=== PATIENT | female | born 1955 | race Caucasian/White ===

== ENCOUNTER 2017-03-29 14:53 | Observation (INO) ==
[2017-03-29 15:16] LABS: Basophils % 0.1 %; Eosinophils % 0.1 %; Hematocrit 45.6 % (35.3-44.9); Hemoglobin 14.3 g/dL (11.5-15.4); Immature Granulocytes % 0.6 % (0-4); Lymphocytes % 7.5 %; Mean Corpuscular HGB Conc 31.4 g/dL (31.6-35.5); Mean Corpuscular Hemoglobin 25.4 pg (28.0-33.3); Mean Corpuscular Volume 80.9 fL (83.0-100.0); Mean Platelet Volume 10.2 fL (9.4-12.4); Monocytes # 0.7 K/mcL (0.0-1.3); Monocytes % 5.5 %; Neutrophils # 10.9 K/mcL (1.6-8.9); Platelet Count 181 K/mcL (140-400); Red Blood Count 5.64 M/mcL (3.82-4.97); Red Cell Distribution Width 15.2 % (11.5-14.5); Segmented Neutrophils % 86.2 %
[2017-03-29 15:33] LABS: Alanine Aminotransferase 28 Units/L (0-55); Albumin 3.6 g/dL (3.5-5.0); Albumin/Globulin Ratio 0.9 (1.1-2.2); Alkaline Phosphatase 124 Units/L (38-126); Amylase 98 Units/L (25-125); Aspartate Amino Transferase 25 Units/L (5-34); BUN/Creatinine Ratio 18 (6-26); Bilirubin,Direct 0.3 mg/dL (0.0-0.5); Bilirubin,Indirect 0.5 mg/dL (0.0-1.2); Bilirubin,Total 0.8 mg/dL (0.2-1.2); Blood Urea Nitrogen 13 mg/dL (7-20); Carbon Dioxide 27 mEq/L (19-29); Chloride 100 mEq/L (98-109); Globulin 4.1 g/dL (2.4-3.5); Glucose 121 mg/dL (70-99); Lipase 28 Units/L (8-78); Osmolality,Calculated 283 (280-300); Potassium 3.6 mEq/L (3.5-4.5); Sodium 136 mEq/L (136-145); Total Protein 7.7 g/dL (6.0-8.3); eGFR For African Americans > 60 (> 60); eGFR For Non-African Americans > 60 (> 60)
[2017-03-29] MEDS ORDERED: Aspirin 81 MG TAB.CHEW PO ONE (15:35)
--- NOTE | 2017-03-29 15:35 | Emergency Department Note ---
Disposition Clinical Impression: Accelerated hypertension Chest pain Qualifiers: Chest pain type: unspecified Qualified Code(s): R07.9 - Chest pain, unspecified HTN (hypertension) Qualifiers: Hypertension type: unspecified secondary hypertension Qualified Code(s): I15.9 - Secondary hypertension, unspecified Disposition: Home, Self-Care Condition: Fair Time of Disposition: 17:14 Chest Pain HPI - General Chief Complaint: ED Chest Pain Stated Complaint: chest pain Time Seen by Provider: 03/29/17 14:59 Source: patient, EMS Limitations: no limitations Vital Signs Reviewed: Yes Nursing Notes Reviewed: Yes - History of Present Illness HPI Narrative: 62-year-old female with MRDD, presents with chest pain. 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 She denies fever chills, productive cough, history of DVTs , history of CAD. She does have a history of hypertension and does take amlodipine for hypertension. Ordered reports 10 out of 10 chest pain, intermittent chest radiating across her left and right chest. Pt complaint: chest pain Onset (ago): hour(s) Duration: intermittent Pain Location: substernal Severity: severe Severity scale (1-10): 10 Quality: aching, heaviness Pain Radiation: none Improves with: nothing Worsens with: nothing Associated symptoms: Reports: nausea. Denies: vomiting, diaphoresis, dyspnea - Related Data Home Medications Medication Instructions Recorded Confirmed Aspirin Enteric Coated [Aspirin EC] 81 mg PO DAILY 08/27/15 01/09/16 Citalopram [CeleXA] 20 mg PO DAILY 08/27/15 01/09/16 Ergocalciferol (VITAMIN D2) 50,000 unit PO QWEEK PRN 08/27/15 01/09/16 [Vitamin D2 (50,000 UNIT)] Famotidine [Pepcid] 40 mg PO DAILY 08/27/15 01/09/16 Furosemide [Lasix] 20 mg PO DAILY 08/27/15 01/09/16 Ketoconazole Shampoo [Nizoral 1 appl TP AD 08/27/15 01/09/16 Shampoo] Meclizine [Antivert] 25 mg PO TID PRN 08/27/15 01/09/16 Albuterol Sulfate [Albuterol 2 puff IH Q6HR 01/09/16 01/09/16 Inhaler] Lisinopril [Zestril] 20 mg PO DAILY 01/09/16 01/09/16 amLODIPine [Norvasc] 2.5 mg PO DAILY 01/09/16 01/09/16 Previous Rx's Medication Instructions Recorded Cefdinir [Omnicef] 300 mg PO BID #8 capsule 01/10/16 Hydrocodone/Acetaminophen [[place] 1 tab PO Q6H PRN #8 tab 01/18/16 5-325 Tablet] Ondansetron ODT [Zofran ODT] 4 mg SL Q8HR PRN #15 tab.rapdis 01/18/16 Omeprazole 40 mg PO DAILY 14 Days 04/10/16 Naproxen [Naprosyn] 250 mg PO BID #6 tablet 07/26/16 Allergies Allergy/AdvReac Type Severity Reaction Status Date / Time acetaminophen Allergy See Verified 01/09/16 12:33 [From Tylenol-Codeine #3] Comments codeine Allergy See Verified 01/09/16 12:33 [From Tylenol-Codeine #3] Comments Sulfa (Sulfonamide Allergy See Verified 01/09/16 12:33 Antibiotics) Comments All systems ED: reviewed and negative except as stated. Constitutional: Denies: fever, chills ENT ED: Denies: ear pain, throat pain Cardiovascular: Reports: as per HPI, chest pain. Denies: palpitations Respiratory: Denies: cough, dyspnea Gastrointestinal: Denies: abdominal pain Genitourinary: Denies: urgency, dysuria Musculoskeletal: Denies: back pain Integumentary: Denies: rash Neurological: Denies: headache Chest Pain PMH - Past Medical History Medical history: Reports: asthma, hyperlipidemia, hypertension, other Surgical history: Reports: no surgical history Psychiatric history: Reports: other QUOTER history: Reports: no QUOTER history - Social History Smoking Status: Never smoker Alcohol use: Reports: none Drug use: Reports: none Physical Exam Constitutional: temp 99.9, no acute distress. HEENT: NCAT, sclera anicteric, PERRLA bilaterally, normal external ears bilaterally, nasal septum nondeviated, average dentition, MMM Neck: normal inspection, neck is supple, trachea midline Resp: Pectus carinatum CTA bilaterally, no resp distress CV: RRR, no m/g/r GI: normal inspection, Soft, NTND, BS present Back: normal inspection, no tenderness to palpation Neuro: A&O3, exam limited due to baseline mental status with probable retardation, no gross motor or sensory deficits bilaterally MSK: normal inspection, bilateral UE and LE with normal ROM Skin: No rashes, skin warm, dry, intact - General Limitations: other (MRDD) General appearance: alert Course Course Narrative: 62-year-old female with MRDD, short stature, large chest, she does admit shortness of breath, and chest pain also hypertension. With systolic blood pressure 190, this is already improved to 176, we will give her medication as indicated try aspirin nitroglycerin at this time, troponin EKG basic labs reassess - Reevaluation(s) Reevaluation #1: chest pain improved with nitroglycerin, admit to medicine service paged Dr. Jules Time: 17:08 Reevaluation #2: ADmitted to Dr Jules in stable condition for chest pain rule out. Vital Signs Temperature 99.9 F H 03/29/17 14:54 Pulse Rate 88 03/29/17 14:54 Respiratory Rate 16 03/29/17 14:54 Blood Pressure 176/98 03/29/17 14:54 O2 Sat by Pulse Oximetry 92 03/29/17 14:54 Temperature 99.9 F H 03/29/17 14:54 Pulse Rate 76 03/29/17 17:03 Respiratory Rate 18 03/29/17 17:03 Blood Pressure 160/90 03/29/17 17:03 O2 Sat by Pulse Oximetry 95 03/29/17 17:03 Oxygen Delivery Oxygen Delivery Room Air Chest Pain - MDM Narrative Medical decision making narrative: 62-year-old female with chest pain at rest, hypertension, admitted for chest pain rule out, hypertensive management. Some blood pressure improvement with nitroglycerin and improvement of chest pain. - Medical Records Medical records reviewed: Yes I reviewed the patient's medical records. - Lab Data Lab results reviewed: Yes I reviewed the patient's lab results. Result diagrams: 03/29/17 15:10 03/29/17 15:10 Lab Results 03/29/17 03/29/17 03/29/17 Range/Units 15:10 15:10 15:10 WBC 12.6 H (4.3-11.1) K/mcL RBC 5.64 H (3.82-4.97) M/mcL Hgb 14.3 (11.5-15.4) g/dL Hct 45.6 H (35.3-44.9) % MCV 80.9 L (83.0-100.0) fL MCH 25.4 L (28.0-33.3) pg MCHC 31.4 L (31.6-35.5) g/dL RDW 15.2 H (11.5-14.5) % Plt Count 181 (140-400) K/mcL MPV 10.2 (9.4-12.4) fL Immature Gran % 0.6 (0-4) % Seg Neutrophils % 86.2 % Lymphocytes % 7.5 % Monocytes % 5.5 % Eosinophils % 0.1 % Basophils % 0.1 % Neutrophils # 10.9 H (1.6-8.9) K/mcL Lymphocytes # 1.0 (0.6-4.6) K/mcL Monocytes # 0.7 (0.0-1.3) K/mcL Eosinophils # 0.0 (0.0-0.6) K/mcL Basophils # 0.0 (0.0-0.2) K/mcL Sodium 136 (136-145) mEq/L Potassium 3.6 (3.5-4.5) mEq/L Chloride 100 (98-109) mEq/L Carbon Dioxide 27 (19-29) mEq/L BUN 13 (7-20) mg/dL Creatinine 0.74 (0.57-1.11) mg/dL Est GFR ( Amer) > 60 (> 60) Est GFR (Non-Af Amer) > 60 (> 60) BUN/Creatinine Ratio 18 (6-26) Glucose 121 H (70-99) mg/dL Calculated Osmolality 283 (280-300) Lactic Acid (0.5-2.2) mmol/L Calcium 9.0 (8.6-10.8) mg/dL Total Bilirubin 0.8 (0.2-1.2) mg/dL Direct Bilirubin 0.3 (0.0-0.5) mg/dL Indirect Bilirubin 0.5 (0.0-1.2) mg/dL AST 25 (5-34) Units/L ALT 28 (0-55) Units/L Alkaline Phosphatase 124 (38-126) Units/L Troponin I 0.01 (0-0.03) ng/mL Serum Total Protein 7.7 (6.0-8.3) g/dL Albumin 3.6 (3.5-5.0) g/dL Globulin 4.1 H (2.4-3.5) g/dL Albumin/Globulin Ratio 0.9 L (1.1-2.2) Amylase 98 (25-125) Units/L Lipase 28 (8-78) Units/L // Range/Units 16:07 WBC (4.3-11.1) K/mcL RBC (3.82-4.97) M/mcL Hgb (11.5-15.4) g/dL Hct (35.3-44.9) % MCV (83.0-100.0) fL MCH (28.0-33.3) pg MCHC (31.6-35.5) g/dL RDW (11.5-14.5) % Plt Count (140-400) K/mcL MPV (9.4-12.4) fL Immature Gran % (0-4) % Seg Neutrophils % % Lymphocytes % % Monocytes % % Eosinophils % % Basophils % % Neutrophils # (1.6-8.9) K/mcL Lymphocytes # (0.6-4.6) K/mcL Monocytes # (0.0-1.3) K/mcL Eosinophils # (0.0-0.6) K/mcL Basophils # (0.0-0.2) K/mcL Sodium (136-145) mEq/L Potassium (3.5-4.5) mEq/L Chloride (98-109) mEq/L Carbon Dioxide (19-29) mEq/L BUN (7-20) mg/dL Creatinine (0.57-1.11) mg/dL Est GFR ( Amer) (> 60) Est GFR (Non-Af Amer) (> 60) BUN/Creatinine Ratio (6-26) Glucose (70-99) mg/dL Calculated Osmolality (280-300) Lactic Acid 1.8 (0.5-2.2) mmol/L Calcium (8.6-10.8) mg/dL Total Bilirubin (0.2-1.2) mg/dL Direct Bilirubin (0.0-0.5) mg/dL Indirect Bilirubin (0.0-1.2) mg/dL AST (5-34) Units/L ALT (0-55) Units/L Alkaline Phosphatase (38-126) Units/L Troponin I (0-0.03) ng/mL Serum Total Protein (6.0-8.3) g/dL Albumin (3.5-5.0) g/dL Globulin (2.4-3.5) g/dL Albumin/Globulin Ratio (1.1-2.2) Amylase (25-125) Units/L Lipase (8-78) Units/L - Radiology Data Radiology results reviewed: Yes I reviewed the patient's radiology results. Chest X-Ray 03/29/17 15:00 IMPRESSION: Stable chest examination. No focal consolidation. D/ / Reema Alcazar MD / Reema Alcazar MD Interpreting Provider: Reema Alcazar MD Chest CTA 03/29/17 15:57 IMPRESSION: 1. No evidence of pulmonary embolic disease. 2. No acute pulmonary findings. 3. Mild enlargement of the main pulmonary artery which can be seen with pulmonary hypertension. D/ / Bin Norris MD / Bin Norris MD Interpreting Provider: Bin Norris MD - EKG Data EKG attestation: Yes I reviewed and interpreted this EKG. EKG shows normal: sinus rhythm Rate: normal Rhythm: NSR (84 bpm [place] 138 QRS [address] segment elevations or depressions, nonspecific possible left bundle branch block,) Interpretation: no acute changes - Core Measures AMI Core Measures Followed: Yes Heart Score - Score History: Slightly Suspicious EKG: Non Specific repolarisation Disturbance Age: 45-65 Risk Factors: Equal/Greater than 3 risk factor or history of atherosclerotic disease Troponin: Less than normal limit HEART Score Total: 4 Attestation Statement - Attestation Attestation: I examined this patient and my medical decision-making was reviewed with the AX SURVEY WORKER/PA/Advanced Practice Nurse/Resident Physician. I agree with the documented findings, disposition and treatment plan as described except to the extent set forth below. Patient emergency department with a chief complaint chest pain. 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 They apparently center for high blood pressure. Patient then stated to medics that she been having chest pain all day. Patient is development delayed and has a difficult time describing it. On examination she is awake and alert in no acute distress. Blood pressure is 170 systolic. Plan. Cardiac workup. No ischemic changes on EKG.
[2017-03-29] MEDS ORDERED: 0.9 % Sodium Chloride 1,000 ML IVC ONE (15:56)
[2017-03-29] MEDS: Nitroglycerin 0.4 MG TAB.SUBL SL ONE ×2 (17:00→17:07)
[2017-03-29 17:29] LABS: Bilirubin,Urine Negative (Negative); Blood,Urine Trace (Negative); Clarity,Urine Clear (Clear); Color,Urine Yellow (Yellow); Glucose,Urine (UA) Normal (Normal); Ketones,Urine Negative (Negative); Leukocyte Esterase,Urine Negative (Negative); Nitrite,Urine Negative (Negative); Protein,Urine Negative (Neg-Trace); Specific Gravity,Urine > 1.030 (1.010-1.025); Urobilinogen,Urine Normal (Normal)
[2017-03-29 17:31] LABS: Bacteria,Urine None Seen per hpf (None-Few); Hyaline Casts,Urine None Seen per lpf (None-Few); Squamous Epithelial Cell,Urine Moderate per lpf (None-Few); WBC,Urine 0-3 per hpf (0-3)
[2017-03-29] MEDS ORDERED: Naloxone 0.4 MG/ML INJ IVP PRN (18:01)
[2017-03-29] MEDS ORDERED: Acetaminophen 325 MG TABLET PO PRN (18:01)
[2017-03-29] MEDS ORDERED: traZODone 50 MG TABLET PO PRN (18:04)
[2017-03-29] MEDS ORDERED: amLODIPine 5 MG TABLET PO ONE (18:06)
[2017-03-29] MEDS ORDERED: Nitroglycerin 0.4 MG TAB.SUBL SL PRN (18:08)
--- NOTE | 2017-03-29 18:10 | Internal Med History&Physical ---
<Siena Bullard - Last Filed: 03/29/17 18:27> Date of Encounter: 03/29/17 Time of Encounter: 18:10 Assessment and Plan (1) Chest pain Current visit: Yes Status: Acute 1 patient's been experiencing midsternal chest pain radiating to right arm which occurred at rest it was related to nitroglycerin. Patient has risk factors of hypertension pressure and obesity. First cardiac troponin was 0.01 and continue to cycle troponins 2 continuous cardiac monitoring 3 we will obtain cardiac echo 4 we will check lipid profile in a.m. 5 continue aspirin 6 nitroglycerin as needed for chest pain 7 oxygen as needed 8 patient will be nothing by mouth after midnight for cardiac stress in a.m. Qualifiers: Chest pain type: unspecified Qualified Code(s): R07.9 - Chest pain, unspecified (2) Hypertensive urgency Current visit: Yes Status: Acute 1 patient has elevated blood pressure 190s systolic she is having chest pain. Given 2 nitroglycerin which did bring down her blood pressure to 170s. She is on amlodipine as well as lisinopril. We will give 5 mg of amlodipine tonight and increase dose to 10 mg in the a.m. We will continue lisinopril (3) Leukocytosis Current visit: Yes Status: Acute 1 patient has WBC 12.6, suspect this is reactive and patient appears dry. We will give her gentle IV fluids overnight and recheck in the a.m. Qualifiers: Leukocytosis type: unspecified Qualified Code(s): D72.829 - Elevated white blood cell count, unspecified (4) DVT prophylaxis Current visit: Yes Status: Acute [facility] Internal Medicine - H&P: HPI Chief complaint: CP htn Admitted From: Emergency Dept Plans for Post Hospital Care: Home History of present illness: is a 62 year old female with past medical history of MRDD hypertension depression. Information has been obtained from medical records as well as caregiver who is at bedside due to patient's cognition. Patient was performing some crafts today when she began to experience midsternal chest pain radiating to right arm. Blood pressure was checked it was 190. Patient reports associated symptoms of nausea and shortness of breath. She was brought to the ER for evaluation. At the ER was noted the patient's systolic blood pressure was 190 she was given aspirin and 2 nitroglycerin which did relieve patient's chest pain and blood pressure improved to systolic of 176. Lab work was obtained troponin was 0.01 some mild leukocytosis chest x-ray was unremarkable. EKG with no ST-T wave abnormalities. We will admit patient for further workup evaluation. Presently patient denies any chest pain she has not. To be any respiratory distress. Lung sounds are clear heart sounds S1 and S2 with no rubs clicks gallops murmurs noted. Patient does have tenderness upon palpation across her chest and on her right arm. Abdomen is soft and nontender no pedal edema noted. Presently patient's systolic is 180 she is sinus rhythm on the monitor. I reviewed this case with Dr. Jules who agrees with plan Past Med Surg Social Fam HX - Past Medical History Medical history: asthma, hyperlipidemia, hypertension, other Psychiatric history: other - Past Surgical History Surgical History: no surgical history - Social History Smoking Status: Never smoker Smokeless Tobacco Status: No Alcohol use: none Drug use: none - Family History Mother Living Status: Internal Medicine - H&P: Meds Cholecalciferol (D-3) [Vitamin D] 1,000 unit PO DAILY 03/29/17 [History] Citalopram [CeleXA] 20 mg PO DAILY 03/29/17 [History] Lisinopril [Zestril] 10 mg PO DAILY 03/29/17 [History] Oxybutynin Chloride [Ditropan Xl] 10 mg PO DAILY 03/29/17 [History] Saliva Stimulant [Biotene Moisturizing Rinse] 10 ml PO 5XD PRN 03/29/17 [History ] Triamcinolone Acet 0.1% CRM [Kenalog] 1 appl TP 2XW 03/29/17 [History] amLODIPine [Norvasc] 5 mg PO DAILY 03/29/17 [History] traZODone [TraZODone] 50 mg PO HS PRN 03/29/17 [History] Allergies Sulfa (Sulfonamide Antibiotics) Allergy (Verified 03/29/17 17:27) Caregiver uncertain of reaction, states "she is allergic" codeine [From Tylenol-Codeine #3] Adverse Reaction (Verified 03/29/17 17:22) See Comments nausea and vomiting ROS unobtainable: due to mental status All Systems PM: A 10-system review of systems was performed and is negative for pertinent findings except as documented above in the HPI. - Constitutional Vitals: Temp Pulse Resp BP Pulse Ox 98.9 F 76 18 160/90 95 03/29/17 17:25 03/29/17 17:03 03/29/17 17:25 03/29/17 17:25 03/29/17 17:03 General appearance: Present: A&O X 2, morbidly obese, pleasant - Head Head exam: Present: atraumatic, normocephalic - Eye Eye exam: Present: PERRL, conjuntiva pink, sclera anicteric Pupils: Present: PERRL - Neck Neck exam general surgery: Present: supple, trachea midline. Absent: lymphadenopathy - Respiratory Respiratory exam: Present: CTAB. Absent: accessory muscle use, rales, rhonchi, wheezes - Cardiovascular Cardiovascular exam: Present: RRR, +S1, +S2. Absent: diastolic murmur, gallop, rubs, systolic murmur - GI/Abdominal GI/Abdominal exam: Present: normal bowel sounds, soft, no peritoneal signs. Absent: distended, tenderness - Extremities Exam Extremities exam: Present: warm, radial pulses palpable and symetrical. Absent : calf tenderness, cyanotic, pedal edema - Neurological Exam Neurological exam: Present: CN II-XII intact, oriented X3, no focal deficits. Absent: pronater drift, facial droop, speech deficit - Skin Skin exam: Present: dry, intact Internal Med - H&P Results - Labs CBC & Chem 7: 03/29/17 15:10 03/29/17 15:10 Labs: Urine 03/29/17 Range/Units 17:18 Urine Color Yellow (Yellow) Urine Clarity Clear (Clear) Urine pH 7.0 (5.0-8.0) pH Units Ur Specific [place] > 1.030 H (1.010-1.025) Urine Protein Negative (Neg-Trace) mg/dL Urine Glucose (UA) Normal (Normal) mg/dL - EKG Data EKG shows normal: sinus rhythm Rate: normal - Diagnostic Studies Other Images Additional comments: Chest X-Ray 03/29/17 15:00 IMPRESSION: Stable chest examination. No focal consolidation. D/ / Reema Alcazar MD / Reema Alcazar MD Interpreting Provider: Reema Alcazar MD Chest CTA 03/29/17 15:57 IMPRESSION: 1. No evidence of pulmonary embolic disease. 2. No acute pulmonary findings. 3. Mild enlargement of the main pulmonary artery which can be seen with pulmonary hypertension. D/ / 03/29/2017 16:49:45 Bin Norris MD [facility] Interpreting Provider: Bin Norris MD <Jorge AEdward T - Last Filed: 03/29/17 18:29> Date of Encounter: 03/29/17 Internal Medicine - H&P: HPI History of present illness: is a 62 year old female All Systems PM: A 10-system review of systems was performed and is negative for pertinent findings except as documented above in the HPI. - Constitutional Vitals: Temp Pulse Resp BP Pulse Ox 99.4 F 78 18 171/92 95 03/29/17 18:24 03/29/17 18:24 03/29/17 18:24 03/29/17 18:24 03/29/17 18:24 Internal Med - H&P Results - Labs CBC & Chem 7: 03/29/17 15:10 03/29/17 15:10 Labs: Urine 03/29/17 Range/Units 17:18 Urine Color Yellow (Yellow) Urine Clarity Clear (Clear) Urine pH 7.0 (5.0-8.0) pH Units Ur Specific [place] > 1.030 H (1.010-1.025) Urine Protein Negative (Neg-Trace) mg/dL Urine Glucose (UA) Normal (Normal) mg/dL - Attending Attestation 62 F, MRDD, HTN, Depression presented with chest pain, details of chest pain difficult to obtain due to mental status. Initial work up negative, patient is clinically dehydrated, BP uncontrolled. Agree with trending troponins, ECHO and Nuclear stress imaging, increase Norvasc , continue home meds, add ASA and Lipitor. Rest of details as in DIRECTOR INTEGRATED Bullard documentation which I agree with.
[2017-03-29] MEDS ORDERED: Ringers Solution, Lactated 1,000 ML IVC SCH (18:15)
[2017-03-30 03:21] LABS: Basophils % 0.1 %; Eosinophils # 0.1 K/mcL (0.0-0.6); Eosinophils % 1.1 %; Hematocrit 43.7 % (35.3-44.9); Hemoglobin 13.7 g/dL (11.5-15.4); Immature Granulocytes % 0.4 % (0-4); Lymphocytes # 1.9 K/mcL (0.6-4.6); Lymphocytes % 21.9 %; Mean Corpuscular HGB Conc 31.4 g/dL (31.6-35.5); Mean Corpuscular Hemoglobin 25.5 pg (28.0-33.3); Mean Corpuscular Volume 81.2 fL (83.0-100.0); Mean Platelet Volume 9.6 fL (9.4-12.4); Monocytes # 0.7 K/mcL (0.0-1.3); Monocytes % 7.6 %; Neutrophils # 5.9 K/mcL (1.6-8.9); Platelet Count 162 K/mcL (140-400); Red Blood Count 5.38 M/mcL (3.82-4.97); Red Cell Distribution Width 15.3 % (11.5-14.5); Segmented Neutrophils % 68.9 %
[2017-03-30 03:37] LABS: BUN/Creatinine Ratio 14 (6-26); Blood Urea Nitrogen 10 mg/dL (7-20); Calcium 8.5 mg/dL (8.6-10.8); Carbon Dioxide 29 mEq/L (19-29); Chloride 104 mEq/L (98-109); Chol/HDL Ratio 2.3 (0-4.9); Cholesterol 178 mg/dL (< 200); Glucose 105 mg/dL (70-99); HDL Cholesterol 77 mg/dL (40-59); LDL Cholesterol,Calculated 86 mg/dL (0-99); Osmolality,Calculated 289 (280-300); Potassium 3.4 mEq/L (3.5-4.5); Sodium 140 mEq/L (136-145); Triglycerides 77 mg/dL (< 150); eGFR For African Americans > 60 (> 60); eGFR For Non-African Americans > 60 (> 60)
[2017-03-30] MEDS ORDERED: Regadenoson 0.4 MG/5 ML SYRINGE IVP ONE (06:15)
[2017-03-30] MEDS ORDERED: Perflutren Lipid Microsphere 1.3 ML in 0.9 % Sodium Chloride 8.7 ML IVP ONE (07:50)
[2017-03-30] MEDS: amLODIPine 5 MG TABLET PO SCH (10:30)
[2017-03-30] MEDS: Aspirin Enteric Coated 81 MG Tablet PO SCH (10:30)
[2017-03-30] MEDS: Cholecalciferol (D-3) 1,000 UNIT TABLET PO SCH (10:31)
--- NOTE | 2017-03-30 11:40 | Internal Med Progress Note ---
Date of Encounter: 03/30/17 Time of Encounter: 10:00 - Assessment and plan (1) Chest pain Current Visit: No Status: Resolved Assessment and plan: Patient currently denies chest pain or shortness of breath. Chest x-ray negative. CTA negative and revealing possible pulmonary hypertension. Echocardiogram is pending. 2 part stress test in progress. ITS Impressions Chest X-Ray 03/29/17 15:00 IMPRESSION: Stable chest examination. No focal consolidation. D/ / Reema Alcazar MD / Reema Alcazar MD Interpreting Provider: Reema Alcazar MD Chest CTA 03/29/17 15:57 IMPRESSION: 1. No evidence of pulmonary embolic disease. 2. No acute pulmonary findings. 3. Mild enlargement of the main pulmonary artery which can be seen with pulmonary hypertension. D/ / 03/29/2017 16:49:45 Bin Norris MD / [facility] Interpreting Provider: Bin Norris MD (2) Cognitive developmental delay Current Visit: Yes Status: Chronic Assessment and plan: Patient has MRDD. She is able to answer questions and it appears as if she is her own guardian. She does live in a half-way. (3) Hypokalemia Current Visit: Yes Status: Acute Assessment and plan: mild, will trend (4) HTN (hypertension) Current Visit: Yes Status: Chronic Assessment and plan: Uncontrolled. At home, patient is on lisinopril 10 mg daily, amlodipine 5 mg daily. Amlodipine has been increased to 10 and she remains hypertensive, will increase her lisinopril and monitor. (5) Accelerated hypertension Current Visit: Yes Status: Acute (6) DVT prophylaxis Current Visit: Yes Status: Acute Assessment and plan: Subcutaneous Lovenox ordered (7) Leukocytosis Current Visit: Yes Status: Resolved Assessment and plan: Likely stress related, no signs of active infection. Urinalysis normal, no signs of pneumonia or other sources of infection. Qualifiers: Leukocytosis type: unspecified Qualified Code(s): D72.829 - Elevated white blood cell count, unspecified (8) Morbid obesity with BMI of 50.0-59.9, adult Current Visit: Yes Status: Chronic - Subjective Interval history: Patient seen and examined. On examination, patient resting supine in bed. She is awake, alert and oriented 3. She denies pain or shortness of breath. She states that she has eaten all of her breakfast. She denies concerns at this time. - Constitutional Vitals: Temp Pulse Resp BP Pulse Ox 98 F 62 15 175/90 94 03/30/17 10:50 03/30/17 10:50 03/30/17 10:50 03/30/17 10:50 03/30/17 10:50 General appearance: Present: A&O X 2, morbidly obese, pleasant, answers questions appropriately - Head Head exam: Present: atraumatic, normocephalic - Eye Eye exam: Present: PERRL, conjuntiva pink, sclera anicteric Pupils: Present: PERRL - Neck Neck exam general surgery: Present: supple, trachea midline. Absent: lymphadenopathy - Respiratory Respiratory exam: Present: CTAB. Absent: accessory muscle use, rales, respiratory distress, rhonchi, wheezes - Cardiovascular Cardiovascular exam: Present: RRR, +S1, +S2. Absent: diastolic murmur, gallop, rubs, systolic murmur - GI/Abdominal GI/Abdominal exam: Present: normal bowel sounds, soft, no peritoneal signs. Absent: distended, tenderness - Extremities Exam Extremities exam: Present: warm, radial pulses palpable and symetrical. Absent : calf tenderness, cyanotic, pedal edema - Neurological Exam Neurological exam: Present: alert, CN II-XII intact, no focal deficits, strengths equal and symetr throughout. Absent: pronater drift, facial droop, speech deficit - Skin Skin exam: Present: dry, intact, normal color, warm Internal Medicine: Result - Labs CBC & Chem 7: 03/30/17 03:12 03/30/17 03:12 Labs: Short CBC 03/30/17 Range/Units 03:12 WBC 8.6 (4.3-11.1) K/mcL Hgb 13.7 (11.5-15.4) g/dL Hct 43.7 (35.3-44.9) % Plt Count 162 (140-400) K/mcL Neutrophils # 5.9 (1.6-8.9) K/mcL BMP 03/30/17 03:12 Sodium 140 Potassium 3.4 L Chloride 104 Carbon Dioxide 29 BUN 10 Creatinine 0.73 Glucose 105 H Calcium 8.5 L Cardiac Enzymes 03/29/17 03/30/17 Range/Units 20:47 03:12 Troponin I 0.01 0.02 (0-0.03) ng/mL Urine 03/29/17 Range/Units 17:18 Urine Color Yellow (Yellow) Urine Clarity Clear (Clear) Urine pH 7.0 (5.0-8.0) pH Units Ur Specific [place] > 1.030 H (1.010-1.025) Urine Protein Negative (Neg-Trace) mg/dL Urine Glucose (UA) Normal (Normal) mg/dL Consult Discharge Plan - Plan Referrals: Nicki Loco [Primary Care Provider] -
--- NOTE | 2017-03-30 13:01 | Electrocardiograph Report ---
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
[2017-03-30] MEDS ORDERED: *HR* Metoprolol 5 MG/5 ML VIAL IVP ONE (14:48)
[2017-03-31 06:37] LABS: BUN/Creatinine Ratio 20 (6-26); Blood Urea Nitrogen 17 mg/dL (7-20); Calcium 8.9 mg/dL (8.6-10.8); Carbon Dioxide 27 mEq/L (19-29); Chloride 102 mEq/L (98-109); Glucose 94 mg/dL (70-99); Osmolality,Calculated 289 (280-300); Potassium 3.7 mEq/L (3.5-4.5); Sodium 139 mEq/L (136-145); eGFR For African Americans > 60 (> 60); eGFR For Non-African Americans > 60 (> 60)
[2017-03-31] MEDS ORDERED: Regadenoson 0.4 MG/5 ML SYRINGE IVP ONE (06:40)
[2017-03-31] MEDS ORDERED: *HR* Enoxaparin 40 MG/0.4 ML SYRINGE SQ SCH (07:00)
[2017-03-31] MEDS ORDERED: Lisinopril 20 MG TABLET PO SCH (09:00)
[2017-03-31] MEDS: Cholecalciferol (D-3) 1,000 UNIT TABLET PO SCH (09:28)
[2017-03-31] MEDS: Aspirin Enteric Coated 81 MG Tablet PO SCH (09:28)
[2017-03-31] MEDS: amLODIPine 5 MG TABLET PO SCH (09:29)
--- NOTE | 2017-03-31 10:17 | Nuclear Medicine Stress Report ---
Regadenoson Nuclear 2 Name: Lilibeth Little Date of Study: 03/30/2017 Date: 1955 Ht: 48.0 in Medical Record#: [id number] Age: 62 Wt: 179.0 lb Gender: Female Order #: [id number] Location: [facility] Room: [facility] Supervising Provider: Luis E Bates DO, FACC, FASE, Reading Physician: Luis E Bates DO, FACC, FASE, FASNC Ordering Physician: Ivory Chicas CNP Primary Care Physician: Luis F Lazar MD Stress Technologist: Jorge Glass RRT, CCT Comb Tender: Florencio Schuster Indications: Chest Pain Impression: Pharmacologic stress ECG is negative for ischemia at level of heart rate achieved. Gated EF = 62%. Small sized, mild intensity, fixed apex defect c/w artifact. Perfusion imaging was negative for ischemia or infarct. History: Hypertension Diabetes Hypercholesteremia Stress Test Summary: Stress Test Type: Pharmacologic Regadenoson 0.4mg/5ml given IV Baseline Information: Initial Heart Rate: 62 Blood Pressure: 160/76 Stress Information: Stress Time: 4 min 00 sec Test Terminated Due to (primary): Completed Protocol Maximum Blood Pressure: 146/74 Maximum Heart Rate: 88 Percent Maximum Heart Rate Achieved: 57 Double Product: [id number] METS Reached: 1 Symptoms: Shortness of breath Nuclear Summary: SPECT myocardial perfusion imaging using Tc99m Sestamibi given intravenously was performed at rest and following cardiac stress testing. The resting images were obtained following initial dose of 32.0 mCi. Following stress an additional dose of 35.1 mCi was given at peak exercise or 30 seconds post regadenoson infusion. Medication Given: Time Medication Dose Units Route Findings: Stress Note * Resting ECG demonstrated normal sinus rhythm. * No baseline arrhythmias were noted. * Pharmacologic stress ECG is negative for ischemia at level of heart rate achieved. * No arrhythmias were noted during stress. * Patient had no chest pain during stress. * Normal hemodynamic responses to pharmacologic stress. Study Quality * Study quality is average. Gated EF % * Gated EF = 62%. Left Ventricle * The left ventricle is not dilated. LVEDV = 89 mL. * Normal wall motion. Apical Perfusion Rest * The apex segment shows a mild reduction in perfusion. Apical Perfusion Stress * The apex segment shows a mild reduction in perfusion. TID * No evidence of transient ischemic dilatation. TID ratio = 1.29. Lung Uptake * There is no evidence of increase lung uptake. Updated by Luis E Bates DO, LAKE, SHAKEEL, KATHIE on 03/31/2017 10:11:33 AM electronically signed on 03/31/2017 10:12:16 AM with status of Final
[2017-03-31 12:04] VITALS: BP 146/65
--- NOTE | 2017-03-31 12:39 | Discharge Summary ---
Date of Encounter: 03/31/17 Time of Encounter: 12:00 - Discharge Diagnosis (1) Chest pain Priority: Primary Status: Resolved Comments: Patient denied chest pain or shortness of breath throughout this admission. ACS ruled out Qualifiers: Chest pain type: unspecified Qualified Code(s): R07.9 - Chest pain, unspecified (2) Cognitive developmental delay Priority: Secondary Status: Chronic (3) Hypokalemia Priority: Primary Status: Resolved (4) HTN (hypertension) Priority: Secondary Status: Chronic Comments: Uncontrolled. At home, patient is on lisinopril 10 mg daily, amlodipine 5 mg daily. Amlodipine has been increased to 10, lisinopril has been increased, and metoprolol has been added to her regimen. Normotensive at time of discharge. Recommend daily blood pressure checks at home. Qualifiers: Hypertension type: unspecified secondary hypertension Qualified Code(s): I15.9 - Secondary hypertension, unspecified; I15 - Secondary hypertension (5) Accelerated hypertension Priority: Primary Status: Resolved (6) DVT prophylaxis Priority: Primary Status: Acute Comments: Subcutaneous Lovenox while admitted. (7) Leukocytosis Priority: Primary Status: Resolved Comments: Mild, resolved. Likely stress related. No signs of acute infection. Qualifiers: Leukocytosis type: unspecified Qualified Code(s): D72.829 - Elevated white blood cell count, unspecified (8) Morbid obesity with BMI of 50.0-59.9, adult Priority: Secondary Status: Chronic - Discharge Medications Prescriptions: amLODIPine [Norvasc] 10 mg PO DAILY #60 tablet Lisinopril [Zestril] 20 mg PO DAILY #30 tablet Metoprolol [Lopressor] 12.5 mg PO BID #30 tablet Home Medications: Cholecalciferol (D-3) [Vitamin D] 1,000 unit PO DAILY 03/29/17 [History] Citalopram [CeleXA] 20 mg PO DAILY 03/29/17 [History] Oxybutynin Chloride [Ditropan Xl] 10 mg PO DAILY 03/29/17 [History] Saliva Stimulant [Biotene Moisturizing Rinse] 10 ml PO 5XD PRN 03/29/17 [History ] Triamcinolone Acet 0.1% CRM [Kenalog] 1 appl TP 2XW 03/29/17 [History] traZODone [TraZODone] 50 mg PO HS PRN 03/29/17 [History] Lisinopril [Zestril] 20 mg PO DAILY #30 tablet 03/31/17 [Rx] Metoprolol [Lopressor] 12.5 mg PO BID #30 tablet 03/31/17 [Rx] amLODIPine [Norvasc] 10 mg PO DAILY #60 tablet 03/31/17 [Rx] Allergies/Adverse Reactions: Allergies Sulfa (Sulfonamide Antibiotics) Allergy (Verified 03/29/17 17:27) Caregiver uncertain of reaction, states "she is allergic" codeine [From Tylenol-Codeine #3] Adverse Reaction (Verified 03/29/17 17:22) See Comments nausea and vomiting Procedures/tests Complete & Pending: Procedures Performed prior 72 hours Category Date Time Status NM damion perf SPECT multi [NM] Routine Exams 03/29/17 18:07 Taken ECG 12 lead ECG [ECG] AM 0600 Y 03/30/17 06:00 Ordered EV echocardiogram w enhance Routine Y 03/30/17 18:06 Completed SP pharm nuclear stress Routine Y 03/31/17 08:00 Completed Date of admission: 03/29/17 17:13 Primary care physician: Nicki Loco Consults: 03/29/17 18:44 Consult to Job Change Crew Member [CONS] Routine Reason for SW Consult: Pt from [facility]. Discharging clinician: Ivory Chicas Anticipated date of discharge: 03/31/17 (back to assisted) - Patient Status Disposition: Home, Self-Care Condition: Fair Functional capacity at discharge: independent ambulation Overall status at discharge: patient is back to baseline - Discharge Instructions Instructions: Chronic Hypertension (DC) Follow Up With: Nicki Loco [Primary Care Provider] - Additional Instructions: Follow-up appointments: Follow-up with primary care provider within one to 2 weeks, check blood pressure daily and keep a log If there is not an appointment listed below, please call your physician and schedule a follow-up appointment. If you have congestive heart failure and your symptoms return, make an appointment with your physician. Medication List: Carry an up to date list of medications you are taking at all time. We have given you an updated medication list including any new medications that you have been prescribed. Please provide that list to your primary provider Symptoms: If your condition changes or you experience any of the following symptoms, notify your physician immediately: Unusual or worsening pain, fever, persistent nausea and vomiting, bleeding, increase in swelling (especially in your legs), sudden weight gain, extreme dizziness, chest pain, increased drainage or redness from a wound or incision. Go to the emergency department if you experience a problem with breathing. Weights: If you have a history of swelling or shortness of breath, weigh yourself daily and notify your physician if you have a weight gain of two or more pounds in one day or 5 or more pounds in a week. If you experience any of the warning signs for stroke: Sudden numbness or weakness of the face, arm or leg; especially on one side of the body, sudden confusion, trouble speaking or understanding, sudden trouble seeing in one or both eyes, sudden trouble walking, dizziness, loss of balance or coordination, sudden sever headache with no cause; Call 911 or go to the emergency room. Stroke is a medical emergency. Some risk factors for stroke: Age, cigarette smoking, diabetes, excessive alcohol consumption, family history , high blood pressure, overweight, physical inactivity, prior stroke, heart attack, diagnosis of carotid artery stenosis or other artery disease. If you smoke, STOP: Smoking or tobacco use significantly increases your risk of heart and lung disease. Your chance of disease greatly increases if you continue to smoke. For more information, call the [employer] tobacco quit line for smoking cessation QUIT-NOW ( ) - Diet and Activity Activity: increase activity as tolerated Diet: low fat, low cholesterol, low salt diet Hospital course: is a 62 year old female with past medical history of MRDD, hypertension, depression, hyperlipidemia, morbid obesity with BMI of 54. Patient presented to the emergency department chief complaint of chest pain. History obtained per caregiver who was present upon her presentation to the emergency department. Patient lives in a assisted and she was performing crafts when she began to experience mid sternally located chest pain that radiated to her right arm. Blood pressure was checked at that time and she was hypertensive. Patient also endorsed nausea and shortness of breath during this episode. Initial blood pressure in the emergency department 170s over 100. Workup in the emergency department otherwise was unremarkable. Chest x-ray negative for acute processes. Chest CTA negative for acute processes. Patient was admitted to the hospitalist service for further evaluation and management. Regarding her hypertension, her home dosages of lisinopril and amlodipine were both increased but she remained hypertensive since she was started on metoprolol. She was normotensive at time of discharge. Patient denied chest pain or shortness of breath throughout this admission. Her echocardiogram was unremarkable with ejection fraction of 60% and mild diastolic dysfunction. Patient was euvolemic on examination and tolerated a regular diet during this admission. She had a 2 day nuclear stress test that was negative for ischemia or infarct. Acute coronary syndrome ruled out. Chest pain likely secondary to accelerated hypertension. Recommend daily blood pressure checks at home and following up outpatient. She was discharged back to her assisted in stable condition with close outpatient follow-up recommended. ITS Impressions Chest X-Ray 03/29/17 15:00 IMPRESSION: Stable chest examination. No focal consolidation. D/ / Reema Alcazar MD / Reema Alcazar MD Interpreting Provider: Reema Alcazar MD Chest CTA 03/29/17 15:57 IMPRESSION: 1. No evidence of pulmonary embolic disease. 2. No acute pulmonary findings. 3. Mild enlargement of the main pulmonary artery which can be seen with pulmonary hypertension. D/ / 03/29/2017 16:49:45 Bin Norris MD / kamila Interpreting Provider: Bin Norris MD Echo with imaging enhancement agent impressions: LVEF 60%. Normal left ventricular size and systolic function. Definity was given. There is evidence of mild diastolic dysfunction of the left ventricle. Normal right ventricular size and function. Mild aortic regurgitation. No pulmonary hypertension. Possible interatrial septal shunt by color flow imaging. Regadenosen nuclear 2 day impressions: Pharmacologic stress ECG is negative for ischemia at level for rate achieved. Gated EF equals 62%. Small size, mild intensity, fixed apex defect consistent with artifact. Perfusion imaging was negative for ischemia or infarct. - Time Spent with Patient Total time spent providing and/or coordinating discharge services: - Constitutional Vitals: Temp Pulse Resp BP Pulse Ox 98.9 F 59 17 146/65 96 07/01/17 12:03 03/31/17 12:03 03/31/17 12:03 03/31/17 12:03 03/31/17 12:03 General appearance: Present: A&O X 2, morbidly obese, pleasant, no acute distress, answers questions appropriately - Head Head exam: Present: atraumatic, normocephalic - Eye Eye exam: Present: PERRL, conjuntiva pink, sclera anicteric Pupils: Present: PERRL - Neck Neck exam general surgery: Present: supple, trachea midline. Absent: lymphadenopathy - Respiratory Respiratory exam: Present: CTAB. Absent: accessory muscle use, rales, respiratory distress, rhonchi, wheezes - Cardiovascular Cardiovascular exam: Present: RRR, +S1, +S2. Absent: diastolic murmur, gallop, rubs, systolic murmur - GI/Abdominal GI/Abdominal exam: Present: normal bowel sounds, soft, no peritoneal signs. Absent: distended, tenderness - Extremities Exam Extremities exam: Present: warm, radial pulses palpable and symetrical. Absent : calf tenderness, cyanotic, pedal edema - Neurological Exam Neurological exam: Present: alert, CN II-XII intact, normal gait, no focal deficits, strengths equal and symetr throughout. Absent: pronater drift, facial droop, speech deficit - Skin Skin exam: Present: dry, intact, normal color, warm
== END 2017-03-31 15:21 | disposition home or self-care (01) ==
LOC: 3BNU 14:53 → EMEROO 14:53 → 3BNU 17:55
PROVIDERS: ADMIT Internal Medicine; ATTEND Nurse Practitioner Family

== ENCOUNTER 2018-10-07 17:46 | Observation (INO) ==
[2018-10-07 21:42] LABS: Basophils % 0.2 %; Eosinophils # 0.2 K/mcL (0.0-0.6); Eosinophils % 2.1 %; Hematocrit 42.6 % (35.3-44.9); Hemoglobin 13.4 g/dL (11.5-15.4); Immature Granulocytes % 0.5 % (0-4); Lymphocytes # 1.8 K/mcL (0.6-4.6); Mean Corpuscular HGB Conc 31.5 g/dL (31.6-35.5); Mean Corpuscular Hemoglobin 25.9 pg (28.0-33.3); Mean Corpuscular Volume 82.2 fL (83.0-100.0); Monocytes # 0.5 K/mcL (0.0-1.3); Monocytes % 6.3 %; Neutrophils # 5.7 K/mcL (1.6-8.9); Platelet Count 198 K/mcL (140-400); Red Blood Count 5.18 M/mcL (3.82-4.97); Red Cell Distribution Width 15.7 % (11.5-14.5); Segmented Neutrophils % 68.9 %
[2018-10-07 21:44] LABS: Bilirubin,Urine Negative (Negative); Blood,Urine Negative (Negative); Clarity,Urine Clear (Clear); Color,Urine Yellow (Yellow); Glucose,Urine (UA) Normal (Normal); Ketones,Urine Negative (Negative); Leukocyte Esterase,Urine Negative (Negative); Nitrite,Urine Negative (Negative); PH,Urine 6.5 pH Units (5.0-8.0); Protein,Urine Negative (Neg-Trace); Specific Gravity,Urine 1.006 (1.010-1.025); Urobilinogen,Urine Normal (Normal)
[2018-10-07 21:56] LABS: Prothrombin Time 11.7 Seconds (9.4-12.1)
[2018-10-07 21:58] LABS: Activated Partial Thrombo Time 30.9 Seconds (26.0-36.0)
[2018-10-07 22:03] LABS: BUN/Creatinine Ratio 30 (6-26); Blood Urea Nitrogen 23 mg/dL (8-23); Calcium 9.2 mg/dL (8.6-10.3); Carbon Dioxide 29 mEq/L (23-29); Chloride 98 mEq/L (98-107); Glucose 90 mg/dL (70-105); Osmolality,Calculated 289 (280-300); Potassium 3.4 mEq/L (3.5-5.1); Sodium 138 mEq/L (136-145); eGFR For Non-African Americans > 60 (> 60)
[2018-10-07 22:04] LABS: Troponin I < 0.03 ng/mL (< 0.04)
[2018-10-07] MEDS ORDERED: Aspirin 81 MG TAB.CHEW PO ONE (23:05)
--- NOTE | 2018-10-07 23:09 | Emergency Department Note ---
Disposition Clinical Impression: Chest pain, rule out acute myocardial infarction Disposition: Admitted As Inpatient Condition: Fair Referrals: NONE,PCP [Primary Care Provider] - Chest Pain HPI - General Chief Complaint: ED Chest Pain Stated Complaint: HTN Time Seen by Provider: 10/07/18 20:33 Source: patient Limitations: no limitations Vital Signs Reviewed: Yes Nursing Notes Reviewed: Yes - History of Present Illness HPI Narrative: 63-year-old female presents emergency Department with concerns of acute onset chest pain which is associated with nausea, diaphoresis, weakness, fatigue. Patient states symptoms started while she was at the group activity. It improved with rest, return with further exertion. Patient denies history of cardiac disease in the past she has a history of hypertension and hy perlipidemia. Pt complaint: chest pain Severity scale (1-10): 8 - Related Data Home Medications Medication Instructions Recorded Confirmed Cholecalciferol (D-3) [Vitamin D] 1,000 unit PO DAILY 03/29/17 08/08/18 Citalopram [CeleXA] 20 mg PO DAILY 03/29/17 08/08/18 Oxybutynin Chloride [Ditropan Xl] 10 mg PO DAILY 03/29/17 08/08/18 Saliva Stimulant [Biotene 10 ml PO 5XD PRN 03/29/17 08/08/18 Moisturizing Rinse] Triamcinolone Acet 0.1% CRM 1 appl TP 2XW 03/29/17 08/08/18 [Kenalog] traZODone [TraZODone] 50 mg PO HS PRN 03/29/17 08/08/18 Previous Rx's Medication Instructions Recorded Lisinopril [Zestril] 20 mg PO DAILY #30 tablet 03/31/17 Metoprolol [Lopressor] 12.5 mg PO BID #30 tablet 03/31/17 amLODIPine [Norvasc] 10 mg PO DAILY #60 tablet 03/31/17 Albuterol Sulfate [Albuterol 2 puff IH QID #1 inhaler 01/02/18 Inhaler] Clotrimazole [Athlete's Foot] 1 cm TP BID PRN #1 tube 08/08/18 Allergies Allergy/AdvReac Type Severity Reaction Status Date / Time Sulfa (Sulfonamide Allergy Caregiver Verified 08/08/18 17:40 Antibiotics) uncertain of reaction, states "she is allergic" codeine AdvReac See Verified 08/08/18 17:40 [From Tylenol-Codeine #3] Comments All systems ED: reviewed and negative except as stated. Review of Systems: As Per HPI Chest Pain PMH - Past Medical History Medical history: Reports: CHF, hypertension Surgical history: Reports: no surgical history Psychiatric history: Reports: anxiety, depression, other FINANCIAL COORDINATOR history: Reports: no FINANCIAL COORDINATOR history - Social History Smoking Status: Never smoker Alcohol use: Reports: none Drug use: Reports: none Physical Exam General: Alert and in no acute distress Skin: Warm, dry, intact Head: Normocephalic and atraumatic Neck: Supple, trachea midline and no tenderness Cardiovascular: RRR, no murmur, normal perfusion Respiratory: CTAB, no wheezing, cough, or respiratory distress Musculoskeletal: Normal strength, no tenderness, swelling or deformity GI: Soft, nontender, nondistended. Bowel sounds present Neuro: A&O to person, place, time and situation. No focal deficits noted on exam Psychiatric: cooperative and appropriate mood and affect. - General Limitations: no limitations General appearance: alert, in no apparent distress Course Vital Signs Temperature 98.4 F 10/07/18 18:16 Pulse Rate 63 10/07/18 18:16 Respiratory Rate 15 10/07/18 18:16 Blood Pressure 139/69 10/07/18 18:16 O2 Sat by Pulse Oximetry 96 10/07/18 18:16 Temperature 98.4 F 10/07/18 20:40 Pulse Rate 52 10/07/18 22:59 Respiratory Rate 19 10/07/18 22:59 Blood Pressure 138/90 10/07/18 22:59 O2 Sat by Pulse Oximetry 98 10/07/18 22:59 Oxygen Delivery Oxygen Delivery Nasal Cannula Chest Pain - Medical Records Medical records reviewed: Yes I reviewed the patient's medical records. - Lab Data Lab results reviewed: Yes I reviewed the patient's lab results. Result diagrams: 10/07/18 21:23 10/07/18 21:23 Lab Results 10/07/18 10/07/18 10/07/18 Range/Units 21:23 21:23 21:23 WBC 8.2 (4.3-11.1) K/mcL RBC 5.18 H (3.82-4.97) M/mcL Hgb 13.4 (11.5-15.4) g/dL Hct 42.6 (35.3-44.9) % MCV 82.2 L (83.0-100.0) fL MCH 25.9 L (28.0-33.3) pg MCHC 31.5 L (31.6-35.5) g/dL RDW 15.7 H (11.5-14.5) % Plt Count 198 (140-400) K/mcL MPV 10.0 (9.4-12.4) fL Immature Gran % 0.5 (0-4) % Seg Neutrophils % 68.9 % Lymphocytes % 22.0 % Monocytes % 6.3 % Eosinophils % 2.1 % Basophils % 0.2 % Neutrophils # 5.7 (1.6-8.9) K/mcL Lymphocytes # 1.8 (0.6-4.6) K/mcL Monocytes # 0.5 (0.0-1.3) K/mcL Eosinophils # 0.2 (0.0-0.6) K/mcL Basophils # 0.0 (0.0-0.2) K/mcL PT 11.7 (9.4-12.1) Seconds INR 1.0 APTT 30.9 (26.0-36.0) Seconds Sodium (136-145) mEq/L Potassium (3.5-5.1) mEq/L Chloride (98-107) mEq/L Carbon Dioxide (23-29) mEq/L BUN (8-23) mg/dL Creatinine (0.60-1.20) mg/dL Est GFR ( Amer) (> 60) Est GFR (Non-Af Amer) (> 60) BUN/Creatinine Ratio (6-26) Glucose (70-105) mg/dL Calculated Osmolality (280-300) Calcium (8.6-10.3) mg/dL Troponin I (< 0.04) ng/mL Lipase 32 (11-82) Units/L Urine Color (Yellow) Urine Clarity (Clear) Urine pH (5.0-8.0) pH Units Ur Specific [place] (1.010-1.025) Urine Protein (Neg-Trace) mg/dL Urine Glucose (UA) (Normal) mg/dL Urine Ketones (Negative) mg/dL Urine Blood (Negative) Urine Nitrite (Negative) Urine Bilirubin (Negative) Urine Urobilinogen (Normal) mg/dL Ur Leukocyte Esterase (Negative) Ur Culture Indicated? (NO) 10/07/18 10/07/18 Range/Units 21:23 21:30 WBC (4.3-11.1) K/mcL RBC (3.82-4.97) M/mcL Hgb (11.5-15.4) g/dL Hct (35.3-44.9) % MCV (83.0-100.0) fL MCH (28.0-33.3) pg MCHC (31.6-35.5) g/dL RDW (11.5-14.5) % Plt Count (140-400) K/mcL MPV (9.4-12.4) fL Immature Gran % (0-4) % Seg Neutrophils % % Lymphocytes % % Monocytes % % Eosinophils % % Basophils % % Neutrophils # (1.6-8.9) K/mcL Lymphocytes # (0.6-4.6) K/mcL Monocytes # (0.0-1.3) K/mcL Eosinophils # (0.0-0.6) K/mcL Basophils # (0.0-0.2) K/mcL PT (9.4-12.1) Seconds INR APTT (26.0-36.0) Seconds Sodium 138 (136-145) mEq/L Potassium 3.4 L (3.5-5.1) mEq/L Chloride 98 (98-107) mEq/L Carbon Dioxide 29 (23-29) mEq/L BUN 23 (8-23) mg/dL Creatinine 0.76 (0.60-1.20) mg/dL Est GFR ( Amer) > 60 (> 60) Est GFR (Non-Af Amer) > 60 (> 60) BUN/Creatinine Ratio 30 H (6-26) Glucose 90 (70-105) mg/dL Calculated Osmolality 289 (280-300) Calcium 9.2 (8.6-10.3) mg/dL Troponin I < 0.03 (< 0.04) ng/mL Lipase (11-82) Units/L Urine Color Yellow (Yellow) Urine Clarity Clear (Clear) Urine pH 6.5 (5.0-8.0) pH Units Ur Specific [place] 1.006 L (1.010-1.025) Urine Protein Negative (Neg-Trace) mg/dL Urine Glucose (UA) Normal (Normal) mg/dL Urine Ketones Negative (Negative) mg/dL Urine Blood Negative (Negative) Urine Nitrite Negative (Negative) Urine Bilirubin Negative (Negative) Urine Urobilinogen Normal (Normal) mg/dL Ur Leukocyte Esterase Negative (Negative) Ur Culture Indicated? NO (NO) - Radiology Data Radiology results reviewed: Yes I reviewed the patient's radiology results. - EKG Data EKG attestation: Yes I reviewed and interpreted this EKG. EKG results narrative: Normal sinus rhythm with a rate of [address] elevation or other depression. No STEMI. QTc 445, QRS 101 Heart Score - Score History: Moderately Suspicious EKG: Normal Age: 45-65 Risk Factors: Equal/Greater than 3 risk factor or history of atherosclerotic dis ease Troponin: Less than normal limit HEART Score Total: 4
--- NOTE | 2018-10-08 00:09 | Internal Med History&Physical ---
<Bin Mckeon - Last Filed: 10/08/18 02:04> Date of Encounter: 10/08/18 Time of Encounter: 00:08 Internal Medicine - H&P: HPI Chief complaint: Chest pain Ad[facility]: [facility] History of present illness: is a 63 year old female detention resident with a past medical history of intellectual disability, hypertension, hyperlipidemia, diastolic CHF, and morbid obesity presented complaining of exertional chest pain 2 associated with nausea, vomiting, diaphoresis, weakness, and fatigue. Chest pain was located in the substernal region and non-radiating. Chest pain only lasted for a few seconds and resolved spontaneously. Patient's last nuclear stress test on 03/30/17 was negative for ischemia. She denies family history of cardiac disease. 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 Psychiatric history: anxiety, depression, other - Past Surgical History Surgical History: no surgical history - Social History Smoking Status: Never smoker Smokeless Tobacco Status: No Alcohol use: none Drug use: none - Family History Mother Living Status: Hx Family Cancer: Yes (Colon cancer) Hx Family Endocrine Disorder: Yes (Diabetes) Father Hx Family Endocrine Disorder: Yes (Diabetes) Internal Medicine - H&P: Meds Cholecalciferol (D-3) [Vitamin D] 1,000 unit PO DAILY 03/29/17 [History] Citalopram [CeleXA] 20 mg PO DAILY 03/29/17 [History] Oxybutynin Chloride [Ditropan Xl] 5 mg PO DAILY 03/29/17 [History] Saliva Stimulant [Biotene Moisturizing Rinse] 10 ml PO 5XD PRN 03/29/17 [History] Triamcinolone Acet 0.1% CRM [Kenalog] 1 appl TP 2XW 03/29/17 [History] traZODone [TraZODone] 100 mg PO HS PRN 03/29/17 [History] Lisinopril [Zestril] 20 mg PO DAILY #30 tablet 03/31/17 [Rx] amLODIPine [Norvasc] 10 mg PO DAILY #60 tablet 03/31/17 [Rx] Albuterol Sulfate [Albuterol Inhaler] 2 puff IH QID #1 inhaler 01/02/18 [Rx] Clotrimazole [Athlete's Foot] 1 cm TP BID PRN #1 tube 08/08/18 [Rx] Acetaminophen [Tylenol] 500 mg PO PRN PRN 10/08/18 [History] Acitretin [Soriatane] 25 mg PO DAILY 10/08/18 [History] Furosemide [Lasix] 40 mg PO DAILY 10/08/18 [History] Metoprolol [Lopressor] 50 mg PO DAILY 10/08/18 [History] Allergy/AdvReac Type Severity Reaction Status Date / Time Sulfa (Sulfonamide Allergy Caregiver Verified 08/08/18 17:40 Antibiotics) uncertain of reaction, states "she is allergic" codeine AdvReac See Verified 08/08/18 17:40 [From Tylenol-Codeine #3] Comments All Systems PM: A 10-system review of systems was performed and is negative for pertinent findings except as documented above in the HPI. - Constitutional Constitutional: fatigue, weakness, no chills, no fever(s) - EENT Eyes: no blurry vision, no diplopia Nose, mouth and throat: no sinus pain, no sore throat - Cardiovascular Cardiovascular ROS IM: chest pain, diaphoresis, no dyspnea, no dyspnea on exertion, no palpitations - Respiratory Respiratory: no cough, no dyspnea, no wheezing, no pain with cough - Gastrointestinal Gastrointestinal: nausea, vomiting, no abdominal pain, no diarrhea - Genitourinary Genitourinary: no urinary frequency, no urinary urgency - Musculoskeletal Musculoskeletal ROS IM: no back pain, no numbness, no tingling - Integumentary Integumentary IM: no erythema, no rash, no skin ulcer - Neurological Neurological ROS: weakness, no headache(s), no numbness, no tingling - Psychiatric Psychiatric: no anxiety, no depression - Endocrine Endocrine IM: fatigue, no polyphagia, no polyuria - Hematologic/Lymphatic Hematologic/Lymphatic: no easy bleeding, no easy bruising - Constitutional Vitals: Temp Pulse Resp BP Pulse Ox 98.4 F 57 19 155/82 99 10/07/18 20:40 10/07/18 23:33 10/07/18 23:33 10/07/18 23:33 10/07/18 23:33 General appearance: Present: cooperative, A&O X 3, pleasant, obese, answers questions appropriately Exam: Awake, pleasant, responds appropriately with yes or no answers - Head Head exam: Present: atraumatic, normocephalic - Eye Eye exam: Present: EOMI, PERRL, conjuntiva pink, sclera anicteric Pupils: Present: PERRL - ENT ENT exam: Present: mucous membranes moist, normal oropharynx - Neck Neck exam general surgery: Present: supple, trachea midline. Absent: lymphadenopathy - Respiratory Respiratory exam: Present: CTAB. Absent: accessory muscle use, rales, rhonchi, wheezes - Cardiovascular Cardiovascular exam: Present: RRR, +S1, +S2. Absent: diastolic murmur, gallop, rubs, systolic murmur - GI/Abdominal GI/Abdominal exam: Present: normal bowel sounds, soft, no peritoneal signs. Absent: distended, tenderness - Extremities Exam Extremities exam: Present: warm, radial pulses palpable and symmetrical. Absent: calf tenderness, cyanotic, pedal edema - Neurological Exam Neurological exam: Present: CN II-XII intact, oriented X3, no focal deficits. Absent: facial droop, speech deficit Additional comments: Cognitive delay - Psychiatric Psychiatric exam: Present: normal affect, normal mood - Skin Skin exam: Present: dry, intact Internal Med - H&P Results - Labs CBC & Chem 7: 10/07/18 21:23 10/07/18 21:23 Labs: Short CBC 10/07/18 Range/Units 21:23 WBC 8.2 (4.3-11.1) K/mcL Hgb 13.4 (11.5-15.4) g/dL Hct 42.6 (35.3-44.9) % Plt Count 198 (140-400) K/mcL Neutrophils # 5.7 (1.6-8.9) K/mcL BMP 10/07/18 21:23 Sodium 138 Potassium 3.4 L Chloride 98 Carbon Dioxide 29 BUN 23 Creatinine 0.76 Glucose 90 Calcium 9.2 Cardiac Enzymes 10/07/18 Range/Units 21:23 Troponin I < 0.03 (< 0.04) ng/mL Urine 10/07/18 Range/Units 21:30 Urine Color Yellow (Yellow) Urine Clarity Clear (Clear) Urine pH 6.5 (5.0-8.0) pH Units Ur Specific [place] 1.006 L (1.010-1.025) Urine Protein Negative (Neg-Trace) mg/dL Urine Glucose (UA) Normal (Normal) mg/dL - Pulse Oximetry Interpretation Digit-Finger O2 Sat by Pulse Oximetry: 94 (On 2 L supplemental oxygen) - EKG Data -: EKG Interpreted by Myself EKG shows normal: sinus rhythm (Heart rate 60, QTc 445, QRS 101, no ST elevation or depression) - Impressions ITS Impressions Chest X-Ray 10/07/18 21:15 IMPRESSION: Cardiomegaly with mild pulmonary vascular congestion D/ / Jones Daniel MD / Jones Daniel MD Interpreting Provider: Jones Daniel MD - Assessment and plan (1) Chest pain, rule out acute myocardial infarction Current Visit: Yes Status: Acute Assessment and plan: 63-year-old female with a history of hypertension obesity, and remote diabetes presented with exertional chest pain x2. Resolved spontaneously. EKG unremarkable Last nuclear stress test negative for ischemia 03/30/17 Initial troponin negative, trend serial troponins Continue aspirin Continue Nitroglycerin prn chest pain Repeat nuclear stress test in AM Continue close monitoring (2) HTN (hypertension) Current Visit: No Status: Chronic Assessment and plan: Continue amlodipine Hold beta ying and DARRYN inhibitor Continue monitoring Qualifiers: Hypertension type: unspecified secondary hypertension Qualified Code(s): I15.9 - Secondary hypertension, unspecified; I15 - Secondary hypertension (3) Hyperlipidemia Current Visit: No Status: Chronic Assessment and plan: Lipid panel pending Start statin Qualifiers: Hyperlipidemia type: unspecified Qualified Code(s): E78.5 - Hyperlipidemia, unspecified (4) Diastolic CHF, chronic Current Visit: No Status: Chronic Assessment and plan: Echo 03/30/17 revealed LVEF 60%, mild LV diastolic dysfunction, mild aortic regurg (5) Hypokalemia Current Visit: Yes Status: Acute Assessment and plan: Potassium 3.4 Supplement potassium Magnesium level pending Continue monitoring (6) Cognitive developmental delay Current Visit: No Status: Chronic Assessment and plan: Continue home meds (7) Morbid obesity with BMI of 40.0-44.9, adult Current Visit: No Status: Chronic Assessment and plan: Lifestyle modification (8) DVT prophylaxis Current Visit: Yes Status: Acute Assessment and plan: EPCD's - Time Spent With Patient Total time spent is greater than 50% in coordination of care (as documented) at patient's floor/unit and/or counseling patient: <Yuliya Murphy - Last Filed: 10/08/18 06:40> Date of Encounter: 10/08/18 Internal Medicine - H&P: HPI History of present illness: is a 63 year old female All Systems PM: A 10-system review of systems was performed and is negative for pertinent findings except as documented above in the HPI. - Constitutional Vitals: Temp Pulse Resp BP Pulse Ox 98.7 F 54 19 126/63 94 10/08/18 04:38 10/08/18 04:38 10/08/18 04:38 10/08/18 04:38 10/08/18 04:38 Internal Med - H&P Results - Labs CBC & Chem 7: 10/08/18 03:52 10/08/18 03:52 Labs: Short CBC 10/07/18 10/08/18 Range/Units 21:23 03:52 WBC 8.2 6.7 (4.3-11.1) K/mcL Hgb 13.4 12.8 (11.5-15.4) g/dL Hct 42.6 41.3 (35.3-44.9) % Plt Count 198 180 (140-400) K/mcL Neutrophils # 5.7 4.3 (1.6-8.9) K/mcL BMP 10/07/18 10/08/18 21:23 03:52 Sodium 138 139 Potassium 3.4 L 3.8 Chloride 98 101 Carbon Dioxide 29 30 H BUN 23 20 Creatinine 0.76 0.70 Glucose 90 100 Calcium 9.2 8.7 Cardiac Enzymes 10/07/18 10/08/18 Range/Units 21:23 03:52 Troponin I < 0.03 < 0.03 (< 0.04) ng/mL Urine 10/07/18 Range/Units 21:30 Urine Color Yellow (Yellow) Urine Clarity Clear (Clear) Urine pH 6.5 (5.0-8.0) pH Units Ur Specific [place] 1.006 L (1.010-1.025) Urine Protein Negative (Neg-Trace) mg/dL Urine Glucose (UA) Normal (Normal) mg/dL - Impressions ITS Impressions Chest X-Ray 10/07/18 21:15 IMPRESSION: Cardiomegaly with mild pulmonary vascular congestion D/ / Jones Daniel MD / Jones Daniel MD Interpreting Provider: Joens Daniel MD - Time Spent With Patient Total time spent is greater than 50% in coordination of care (as documented) at patient's floor/unit and/or counseling patient: - Attending Attestation I performed a history of physical examination of the patient and discussed her management with the resident. I reviewed the resident's note and agree with the assessment and plan of care.
[2018-10-08] MEDS ORDERED: Ondansetron 4 MG/2 ML VIAL IVP PRN (01:00)
[2018-10-08] MEDS ORDERED: Nitroglycerin 0.4 MG TAB.SUBL SL PRN (01:00)
[2018-10-08] MEDS ORDERED: Potassium Chloride 40 MEQ, Lidocaine 1% 2 ML in D5% in Water 500 ML IVPB ONE (01:03)
[2018-10-08] MEDS ORDERED: traZODone 50 MG TABLET PO PRN (01:03)
[2018-10-08 04:03] LABS: Basophils % 0.3 %; Eosinophils # 0.2 K/mcL (0.0-0.6); Eosinophils % 2.8 %; Hematocrit 41.3 % (35.3-44.9); Hemoglobin 12.8 g/dL (11.5-15.4); Immature Granulocytes % 0.3 % (0-4); Lymphocytes # 1.7 K/mcL (0.6-4.6); Lymphocytes % 24.7 %; Mean Corpuscular Hemoglobin 25.8 pg (28.0-33.3); Mean Corpuscular Volume 83.3 fL (83.0-100.0); Mean Platelet Volume 9.6 fL (9.4-12.4); Monocytes # 0.5 K/mcL (0.0-1.3); Neutrophils # 4.3 K/mcL (1.6-8.9); Platelet Count 180 K/mcL (140-400); Red Blood Count 4.96 M/mcL (3.82-4.97); Red Cell Distribution Width 15.7 % (11.5-14.5); Segmented Neutrophils % 63.9 %
[2018-10-08 04:22] LABS: Chol/HDL Ratio 3.2 (0-4.9)
[2018-10-08 04:24] LABS: BUN/Creatinine Ratio 29 (6-26); Blood Urea Nitrogen 20 mg/dL (8-23); Calcium 8.7 mg/dL (8.6-10.3); Carbon Dioxide 30 mEq/L (23-29); Chloride 101 mEq/L (98-107); Glucose 100 mg/dL (70-105); Osmolality,Calculated 291 (280-300); Potassium 3.8 mEq/L (3.5-5.1); Sodium 139 mEq/L (136-145); eGFR For Non-African Americans > 60 (> 60)
[2018-10-08 04:26] LABS: Troponin I < 0.03 ng/mL (< 0.04)
[2018-10-08] MEDS ORDERED: Regadenoson 0.4 MG/5 ML SYRINGE IVP ONE ×2 (05:53→08:40)
[2018-10-08] MEDS: Aspirin 81 MG TAB.CHEW PO SCH (10:34)
[2018-10-08] MEDS: amLODIPine 5 MG TABLET PO SCH (10:34)
[2018-10-08] MEDS: Furosemide 40 MG TABLET PO SCH (10:35)
--- NOTE | 2018-10-08 12:58 | Event Note ---
Date of Encounter: 10/08/18 Time of Encounter: 12:56 Patient seen and examined at bedside. Patient has minimal complaints at this time. She is chest pain-free. She is able to get up and walk around without difficulty. Denies shortness of breath. Heart: regular rate and rhythm, no murmurs, rubs, gallops. Lungs: Clear to auscultation bilaterally, no rales, rhonchi, wheezes Extremities: No edema noted Assessment and plan: Chest pain: Chest pain-free at this time. Troponins negative. 2 day stress test pending, if negative likely discharge tomorrow. Hypertension: Well controlled. Continue home medications.
--- NOTE | 2018-10-08 17:59 | Electrocardiograph Report ---
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
[2018-10-09] MEDS: amLODIPine 5 MG TABLET PO SCH (08:31)
[2018-10-09] MEDS: Aspirin 81 MG TAB.CHEW PO SCH (08:32)
[2018-10-09] MEDS: Furosemide 40 MG TABLET PO SCH (08:32)
--- NOTE | 2018-10-09 13:33 | Cardiology Consult Note ---
<Jailyn Cobb - Last Filed: 10/09/18 13:49> Date of Encounter: 10/09/18 Time of Encounter: 13:00 Assessment and Plan (1) Abnormal stress test Current Visit: Yes Status: Acute Cardiology consulted for abnormal stress test. Patient presented with atypical/typical chest pain symptoms, troponin negative. No acute ST/T wave abnormalities on ECG. Hx of negative nuclear stress in 2017; last TTE 03/2017 demonstrated normal LVEF with normal wall motion. Significant RF for CAD including DMII, HTN, HLD, family hx. Pharmacologic nuclear stress 10/09/18: gated EF=70%, small, moderate intensity reversible perfusion defect in the apical anterior and apex segments consistent with ischemia. Patient with intellectual disability, resides in [facility]. Social work consulted to assist with consent for possible future ischemic evaluation (renae roque [facility]). Discussed medical therapy vs. C; at this time patient is unable to make decision, again, appreciate social work. She is alert and oriented x3 and responds to simple questions appropriately. Continue asa, statin. Will add BB. (2) Chest pain Current Visit: No Status: Resolved Plan as stated above. Qualifiers: Chest pain type: unspecified Qualified Code(s): R07.9 - Chest pain, unspecified (3) HTN (hypertension) Current Visit: No Status: Chronic Stable as inpatient. Qualifiers: Hypertension type: essential hypertension Qualified Code(s): I10 - Essential (primary) hypertension Discussion w patient/family: The assessment and plan as outlined above was discussed with the patient and/or family members who expressed understanding and agreement. All questions were answered. Thank you for involving us in the care of your patient. Please call with any questions. The patient will be discussed and reviewed with Dr. Krishnan; changes to be made accordingly. History of Present Illness Consult date: 10/09/18 Requesting physician: Jones Mix Consult reason: Abnormal stress test Chief complaint: Chest pain History of present illness: is a 63 year old female with PMHx significant of DMII, HTN, HLD, and intellectual disability (resides at [facility]) who presented to the ED with complaints of midsternal chest discomfort with radiation to bilateral arms that started while at rest. Associated symptoms included nausea and shortness of breath. She reports she took x2 tylenol tablets which resolved chest pain; she reports she then told a friend and recommend ED evaluation. Upon arrival to ED, troponin negative x3. No acute ST/T wave abnormalities noted on ECG. She denies recurrent chest pain upon admission. Cardiology consulted today for abnormal stress test. Prior CV testing: TTE 03/30/17: LVEF 60%, mild LVDD, mild AR, normal wall motion Nuclear stress (2-day) 03/30/17: gated EF=62%, perfusion imaging negative for ischemia or infarct. Small, mild intensity fixed defect at apex consistent with artifact. Past Med Surg Social Fam HX - Past Medical History Attestation: Yes The following information was validated with the patient. 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 Psychiatric history: anxiety, depression, other - Past Surgical History Surgical History: no surgical history - Social History Smoking Status: Never smoker Smokeless Tobacco Status: No Alcohol use: none Drug use: none Current living situation: [facility] - Family History Mother Living Status: Cause of : Colon cancer Hx Family Cardiac Disorders: Yes (heart disease) Hx Family Cancer: Yes (Colon cancer) Hx Family Endocrine Disorder: Yes (Diabetes) Father Living Status: Hx Family Endocrine Disorder: Yes (Diabetes) Sister Living Status: Hx Family Cardiac Disorders: Yes (CAD) Medications and Allergies Cholecalciferol (D-3) [Vitamin D] 1,000 unit PO DAILY 03/29/17 [History] Citalopram [CeleXA] 20 mg PO DAILY 03/29/17 [History] Oxybutynin Chloride [Ditropan Xl] 5 mg PO DAILY 03/29/17 [History] Triamcinolone Acet 0.1% CRM [Kenalog] 1 appl TP 2XW 03/29/17 [History] traZODone [TraZODone] 100 mg PO HS PRN 03/29/17 [History] Lisinopril [Zestril] 20 mg PO DAILY #30 tablet 03/31/17 [Rx] amLODIPine [Norvasc] 10 mg PO DAILY #60 tablet 03/31/17 [Rx] Acetaminophen [Tylenol] 500 mg PO PRN PRN 10/08/18 [History] Acitretin [Soriatane] 25 mg PO SUWEFR 10/08/18 [History] Acitretin [Soriatane] 50 mg PO MOTUTHFR 10/08/18 [History] Furosemide [Lasix] 40 mg PO DAILY 10/08/18 [History] Metoprolol [Lopressor] 50 mg PO DAILY 10/08/18 [History] Allergy/AdvReac Type Severity Reaction Status Date / Time Sulfa (Sulfonamide Allergy Caregiver Verified 08/08/18 17:40 Antibiotics) uncertain of reaction, states "she is allergic" codeine AdvReac See Verified 08/08/18 17:40 [From Tylenol-Codeine #3] Comments All Systems Review: The remainder of the systems were reviewed and are negative - Cardiovascular Cardiovascular: as per HPI Physical Examination Vital Signs, Last 4 Hours Temp Pulse Resp BP Pulse Ox 10/09/18 12:44 98.4 F 70 20 117/49 95 General: Conversant, No Apparent Distress HEENT: Atraumatic, Normocephaly, Mucus Membranes Moist Neck: No JVD, Normal carotid pulses Cardiac: Reg Rate and Rhythm, Normal S1 and S2, No Murmur Lungs: Normal Breath Sounds, No Wheeze, Rales, Rhonchi Neuro: Alert and responsive, No focal deficits noted Abdomen: Soft, Non-Tender Skin: No rashes noted on visualized skin Musculoskeletal: No Chest Wall Tenderness Extremities: No Clubbing, No Cyanosis, Normal Pulses, Other (mild LE edema noted) Results 10/08/18 03:52 10/08/18 03:52 Lab Results 10/08/18 13:23 Troponin I < 0.03 Active Medications Amlodipine Besylate (Norvasc) 10 mg PO DAILY [facility]; Protocol Stop: 04/09/19 09:01 Last Admin: 10/09/18 08:31 Dose: 10 mg Aspirin (Aspirin) 81 mg PO DAILY [facility]ARM[facility] Stop: 04/09/19 09:01 Last Admin: 10/09/18 08:32 Dose: 81 mg Atorvastatin Calcium (Lipitor) 40 mg PO HS [facility] Stop: 04/09/19 21:01 Last Admin: 10/08/18 19:44 Dose: 40 mg Citalopram Hydrobromide (Celexa) 20 mg PO DAILY [facility] Stop: 04/09/19 09:01 Last Admin: 10/09/18 08:32 Dose: 20 mg Furosemide (Lasix) 40 mg PO DAILY [facility] Stop: 04/09/19 09:01 Last Admin: 10/09/18 08:32 Dose: 40 mg Nitroglycerin (Nitroglycerin) 0.4 mg SL Q5MIN PRN PRN Reason: Chest Pain Stop: 04/09/19 01:01 Ondansetron HCl (Zofran) 4 mg IVP Q6HR PRN; Protocol PRN Reason: Nausea Stop: 04/09/19 01:01 Trazodone HCl (Trazodone) 100 mg PO HS PRN PRN Reason: Insomnia Stop: 04/09/19 01:04 - Imaging and Cardiology Stress Test: report reviewed Echo: report reviewed Cardiac cath: report reviewed Other Results: telemetry not available. (ED obs) - EKG Interpretation EKG results cardiology: personally reviewed Consult Discharge Plan - Plan Referrals: NONE,PCP [Primary Care Provider] - <Jarad Krishnan A - Last Filed: 10/09/18 15:39> Date of Encounter: 10/09/18 - Attending Attestation I have personally performed a face to face evaluation on this patient. I have reviewed and agree with the documented findings and care plan as documented by the SENIOR COMPLIANCE ANALYST. History and Exam by me shows: 63-year-old female with diabetes, hypertension hyperlipidemia presenting with chest pain and found to have positive stress test in the LAD territory. Impression/plan: I agree with cardiac catheterization. Need to obtain consent from legal guardian. Continue aspirin, beta ying, high intensity statin. Thanks, Jarad Krishnan MD FACC Assessment and Plan Discussion w patient/family: The assessment and plan as outlined above was discussed with the patient and/or family members who expressed understanding and agreement. All questions were answered. Thank you for involving us in the care of your patient. Please call with any questions. History of Present Illness History of present illness: is a 63 year old female All Systems Review: The remainder of the systems were reviewed and are negative Physical Examination Vital Signs, Last 4 Hours Temp Pulse Resp BP Pulse Ox 10/09/18 12:44 98.4 F 70 20 117/49 95 Results 10/08/18 03:52 10/08/18 03:52
--- NOTE | 2018-10-09 16:02 | Internal Med Progress Note ---
Hospitalist Progress Note - Encounter Date of Encounter: 10/09/18 Time of Encounter: 15:59 - Subjective Interval History: Patient seen and examined at bedside. She has minimal complaints at this time. She states she is chest pain-free since admission. She has been unable to move around without difficulty. Denies shortness of breath, nausea, diaphoresis. She is tolerating diet well. - Exam Vitals: Temp Pulse Resp BP Pulse Ox 98.4 F 70 20 117/49 95 10/09/18 12:44 10/09/18 12:44 10/09/18 12:44 10/09/18 12:44 10/09/18 12:44 Exam: Gen.: Alert and oriented 3, no acute distress HEENT: Mucous membranes moist, no oral lesions Heart: Regular rate and rhythm, no murmurs, rubs, gallops Lungs: Clear to auscultation bilaterally, no rales, rhonchi, wheezes Abdomen: Soft, nontender, nondistended. Normoactive bowel sounds Extremities: No clubbing, cyanosis, edema noted - Assessment and Plan (1) Abnormal stress test Current Visit: Yes Status: Acute Assessment and Plan: Patient with cardiac stress testing that revealed small size, moderate intensity, reversible defect in the apical anterior and apex segments consistent with ischemia. Concern for underlying coronary disease. Cardiology has been consulted and left heart catheterization, given the patient's cognitive disabilities they are attempting to obtain consent from the patient's legal gua rdian. Tentatively plan for left heart catheterization tomorrow. NPO at midnight. (2) Chest pain Current Visit: Yes Status: Acute Assessment and Plan: Concern for underlying coronary disease as discussed above. Chest pain-free at this time. Further management per cardiology with possible left heart catheterization tomorrow. (3) HTN (hypertension) Current Visit: No Status: Chronic Assessment and Plan: Blood pressure under good control to time. Continue home medications. (4) Diastolic CHF, chronic Current Visit: No Status: Chronic Assessment and Plan: Most recent echo reveals diastolic heart failure. No evidence of acute exacerbation. Euvolemic on exam. Continue home Lasix. (5) Cognitive developmental delay Current Visit: No Status: Chronic Assessment and Plan: Patient has baseline cognitive disabilities. animal nursery worker cardiology or attempting to obtain consent from the patient's legal guardian for left heart catheterization due to abnormal stress test. (6) DVT prophylaxis Current Visit: Yes Status: Acute Assessment and Plan: She is ambulatory and frequently moves around the room - Time Spent with Patient Total time spent is greater than 50% in coordination of care (as documented) at patient's floor/unit and/or counseling patient: Internal Medicine: Result - Labs CBC & Chem 7: 10/08/18 03:52 10/08/18 03:52 - ABG Interpretation ABG results: PT/INR, D-dimer PT 11.7 Seconds (9.4-12.1) 10/07/18 21:23 Consult Discharge Plan - Plan Referrals: NONE,PCP [Primary Care Provider] - (2) Chest pain Qualifiers: Chest pain type: unspecified Qualified Code(s): R07.9 - Chest pain, unspecified (3) HTN (hypertension) Qualifiers: Hypertension type: essential hypertension Qualified Code(s): I10 - Essential (primary) hypertension
[2018-10-10 09:45] LABS: Basophils % 0.2 %; Eosinophils # 0.2 K/mcL (0.0-0.6); Eosinophils % 2.6 %; Hematocrit 42.6 % (35.3-44.9); Hemoglobin 13.3 g/dL (11.5-15.4); Immature Granulocytes % 0.2 % (0-4); Lymphocytes # 1.4 K/mcL (0.6-4.6); Lymphocytes % 20.8 %; Mean Corpuscular HGB Conc 31.2 g/dL (31.6-35.5); Mean Corpuscular Hemoglobin 25.8 pg (28.0-33.3); Mean Corpuscular Volume 82.6 fL (83.0-100.0); Mean Platelet Volume 9.8 fL (9.4-12.4); Monocytes # 0.5 K/mcL (0.0-1.3); Monocytes % 7.4 %; Neutrophils # 4.5 K/mcL (1.6-8.9); Platelet Count 179 K/mcL (140-400); Red Blood Count 5.16 M/mcL (3.82-4.97); Red Cell Distribution Width 15.7 % (11.5-14.5); Segmented Neutrophils % 68.8 %
[2018-10-10 10:07] LABS: BUN/Creatinine Ratio 27 (6-26); Blood Urea Nitrogen 17 mg/dL (8-23); Calcium 8.8 mg/dL (8.6-10.3); Carbon Dioxide 29 mEq/L (23-29); Chloride 105 mEq/L (98-107); Glucose 103 mg/dL (70-105); Osmolality,Calculated 292 (280-300); Sodium 140 mEq/L (136-145); eGFR For Non-African Americans > 60 (> 60)
--- NOTE | 2018-10-10 10:36 | Event Note ---
Date of Encounter: 10/10/18 Time of Encounter: 10:34 - Cardiology Event Note Patient admitted with chest pain, abnormal stress test noted. Plan for LHC today. Risks versus benefits of LHC explained to patient, who states understanding and agreeable to proceed. hospitality services manager note reviewed, and patient is able to consent for herself. Patient is alert and oriented x3. Labs stable. Further cardiology recommendations pending LHC today.
[2018-10-10] MEDS: amLODIPine 5 MG TABLET PO SCH (10:42)
[2018-10-10] MEDS: Aspirin 81 MG TAB.CHEW PO SCH (10:43)
[2018-10-10] MEDS: Furosemide 40 MG TABLET PO SCH (10:43)
--- NOTE | 2018-10-10 12:13 | Internal Med Progress Note ---
Hospitalist Progress Note - Encounter Date of Encounter: 10/10/18 Time of Encounter: 08:45 - Subjective Interval History: Pt denies any recurrence of chest pain. Denies shortness of breath, nausea, diaphoresis. No fever/chills. - Exam Vitals: Temp Pulse Resp BP Pulse Ox 97.4 F L 87 17 134/66 98 10/10/18 08:16 10/10/18 08:16 10/10/18 08:16 10/10/18 08:16 10/10/18 08:16 Exam: Gen.: Alert and oriented 3, no acute distress Heart: Regular rate and rhythm, no murmurs Lungs: Clear to auscultation bilaterally, no rales, rhonchi, wheezes Abdomen: Soft, nontender, nondistended. Normoactive bowel sounds Extremities: No clubbing, cyanosis, edema noted - Assessment and Plan (1) Abnormal stress test Current Visit: Yes Status: Acute Assessment and Plan: Patient with cardiac stress testing that revealed small size, moderate intensity, reversible defect in the apical anterior and apex segments consistent with ischemia. Concern for underlying coronary disease. Cardiology input appreciated, for [facility] today (2) Chest pain Current Visit: Yes Status: Acute Assessment and Plan: Concern for underlying coronary disease as above. For [facility] today on asa, statin, bb PRN nitro (3) HTN (hypertension) Current Visit: No Status: Chronic Assessment and Plan: Blood pressure under good control to time. Continue home medications. (4) Cognitive developmental delay Current Visit: No Status: Chronic Assessment and Plan: verified that patient is able to give consent on her own for [facility] as abve (5) Diastolic CHF, chronic Current Visit: No Status: Chronic Assessment and Plan: Echo 03/2017: mild LV diastolic dysfunction No evidence of acute exacerbation. Euvolemic on exam. Continue home dose of Lasix. (6) DVT prophylaxis Current Visit: Yes Status: Acute Assessment and Plan: EPCD - Time Spent with Patient Total time spent is greater than 50% in coordination of care (as documented) at patient's floor/unit and/or counseling patient: Plan of Care Discussed with: nurse Internal Medicine: Result - Labs CBC & Chem 7: 10/10/18 09:26 10/10/18 09:26 Labs: Short CBC 10/10/18 Range/Units 09:26 WBC 6.5 (4.3-11.1) K/mcL Hgb 13.3 (11.5-15.4) g/dL Hct 42.6 (35.3-44.9) % Plt Count 179 (140-400) K/mcL Neutrophils # 4.5 (1.6-8.9) K/mcL BMP 10/10/18 09:26 Sodium 140 Potassium 4.0 Chloride 105 Carbon Dioxide 29 BUN 17 Creatinine 0.63 Glucose 103 Calcium 8.8 - ABG Interpretation ABG results: PT/INR, D-dimer PT 11.7 Seconds (9.4-12.1) 10/07/18 21:23 Consult Discharge Plan - Plan Referrals: NONE,PCP [Primary Care Provider] - (2) Chest pain Qualifiers: Chest pain type: unspecified Qualified Code(s): R07.9 - Chest pain, unspecified (3) HTN (hypertension) Qualifiers: Hypertension type: essential hypertension Qualified Code(s): I10 - Essential (primary) hypertension
--- NOTE | 2018-10-10 14:15 | Pre-Sedation Evaluation ---
Pre-sedation evaluation - Pre-sedation checklist Date of procedure: 10/10/18 Procedure: [facility] Recent Vitals: Last Vital Signs Temp 97.4 F L 10/10/18 08:16 Pulse 87 10/10/18 08:16 Resp 17 10/10/18 08:16 BP 134/66 10/10/18 08:16 Pulse Ox 98 10/10/18 08:16 H&P (including ROS) documented in medical record: Yes Previous reaction to sedatives/anesthetics: No Dietary Status: NPO after Midnight Airway Assessment: Patient can open mouth completely, TMJ function normal ASA Classification *see protocol: CLASS II-Mild systemic disease Plan of Care: Pt appropriate candidate for procedure/moderate/conscious sedation, Risks/benefits of procedure/sedation discussed w/ patient/family Cardiac Registry (Cardio Only) - Clincal Frailty Scale Clinical Frailty Scale: Managing Well
[2018-10-10] MEDS ORDERED: ISOVUE-370 200 ML INFUS..BTL ONE (14:16)
[2018-10-10] MEDS ORDERED: *HR* Midazolam HCl 2 MG/2 ML VIAL ONE (14:16)
[2018-10-10] MEDS ORDERED: 0.9 % Sodium Chloride 1,000 ML ONE ×2 (14:16→14:31)
[2018-10-10] MEDS ORDERED: *HR* Heparin 10,000 UNIT/10 ML VIAL ONE (14:16)
[2018-10-10] MEDS ORDERED: Heparin 1,000 UNITS/500 mL 500 ML ONE (14:16)
[2018-10-10] MEDS ORDERED: Nitroglycerin 1,000 MCG/10 ML VIAL IV ONE (14:17)
[2018-10-10] MEDS ORDERED: Verapamil 5 MG/2 ML VIAL ONE (14:17)
[2018-10-10] MEDS ORDERED: *HR* FentaNYL (PF) 100 MCG/2 ML VIAL ONE (14:18)
--- NOTE | 2018-10-10 15:16 | Invasive Diagnostic Lab Proc ---
Name: Lilibeth Little Date of Study: 10/10/2018 Date: 1955 Ht: 53.9in Medical Record#: [id number] Age: 63 Wt: 171.96lb Gender: Female BSA: 1.62 Order #: [id number] BMI: 41.56 Physicians Procedure Physician: Arcadio Thao MD, [facility] Referring MD: Referring MD: Staff Name Position Time In [facility], [facility] RT (R) Scrub 02:27 PM Jacqueline Ramsey RN Physician Intensivist 02:27 PM Ana Kan RT (R) Monitor 02:27 PM Indications Indication Abnormal Test - Stress Procedures Performed Procedure L HRT ARTERY/VENTRICLE ANGIO Pre-Procedure Checklist Informed consent is complete signed and on chart. H&P is on chart. ID band is on and ID verified with patient. Patient NPO for procedure The procedure was described for the patient and questions were answered. Blood Pressure: 134/66 ECG is on chart. Rhythm: NSR Plan of Care Patient will tolerate the procedure without complications. Adequate level of comfort will be maintained. Hemodynamics will remain stable Patient will recover from procedure without complications. Respiratory function will be maintained. Cardiac rhythm will remain stable. Patient temperature will be maintained. Patient and/or family have verbalized understanding of the procedure. Patient Education Chief Complaint/Reason for Test: Cardiac Cath Developmental Category: Adult (18-64 years) Developmentally Appropriate for Age: Yes Learning Barriers: None Education Needs: Procedure Education Method: Verbal Information Taught: Cardiac Cath Educational Evaluation: Able to repeat information Intravenous Access Time IV Size Location DC'd Fluid/Drip Rate Units RN 02:30 PM 20g 1 10/04" Patent On Arrival Rt Antecubital 0.9NaCl 25 ml/hr Ashlyn Jeff RN Allergies Sulfa (Sulfonamide Antibiotics) acetaminophen SULFA (sulfonamide) codeine Vital Signs Time BP (mmHg) HR (bpm) O2 Sat. RR (bpm) LOC 02:33 PM / % 5 = Fully awake and oriented or at pre-proc level 02:33 PM / % 4 = Oriented but drowsy 02:28 PM 170 / 75 51 99 % 14 02:33 PM 143 / 84 56 98 % 14 02:38 PM 112 / 67 54 89 % 17 02:43 PM 114 / 66 53 91 % 19 02:47 PM 124 / 72 57 93 % 23 02:53 PM 127 / 63 54 94 % 21 Procedural Medications Time Medication Dose Units Method Given By 02:28 PM Oxygen 2 L/min nasal cannula Jacqueline Ramsey RN 02:32 PM Oxygen 2 L/min nasal cannula Jacqueline Ramsey RN 02:34 PM Versed 2 mg Intravenous Jacqueline Ramsey RN 02:34 PM Fentanyl 50 mcg Intravenous Jacqueline Ramsey RN 02:40 PM Lidocaine 2% 19 ml Subcutaneous Arcadio Thao MD, FACC 02:45 PM Nitroglycerin 50 mcg Intracoronary Arcadio Thao MD ASA Classification: CLASS II- Mild systemic disease (i.e. well-controlled diabetes, hypertension, asthma, cigarette smoking) Kristian Score Preprocedure Postprocedure Activity 2- Moves 4 extremities sustained head lift Activity 2- Moves 4 extremities sustained head lift Circulation 2- SBP +/= 20 points of pre-anesthetic level Circulation 2- SBP +/= 20 points of pre-anesthetic level Consciousness 2- Awake and alert oriented x 3 Consciousness 2- Awake and alert oriented x 3 O2 Saturation 2- Able to maintain O2 satruation of 92% on room air O2 Saturation 2- Able to maintain O2 satruation of 92% on room air Respiratory 2- Able to deep breathe and cough well Respiratory 2- Able to deep breathe and cough well Total Score 10 Total Score 10 Contrast Agent: Isovue Diagnostic Contrast: 62 ml Total Contrast: 62 ml Fluoro Dose: 4012 mGy Procedure Log Time Note Enter By 02:00 PM CathStat 02:27 PM Pt arrived to [facility] lab[facility] 2 at 14:27 tsites 02:27 PM Ana Lay RT (R) Position: Scrub Time in: 14:27 tsites 02:27 PM Jacqueline Ramsey RN Position: Physician Intensivist Time in: 14:27 tsites 02:27 PM Vitals capture started with the following parameters, Patient=Adult, Interval=5 min, Initial Ovuhjffc=617 mmHg, Deflation Rate=5 mmHg, Cuff placed on Right Arm 02:27 PM Ana Kan RT (R) Position: Monitor Time in: 14:27 tsites 02:27 PM Patient charges- Angio tray pack, Navilyst 3mm J, Pulse Oximetry and ACIST tubing and transducer tsites 02:28 PM Physician arrived 14:28 tsites 02:28 PM Meet and greet completed tsites 02:28 PM Sign in performed according to hospital policy. Informed consent was obtained. tsites 02:28 PM Procedure start 14:28 tsites 02: PM Hair removed from procedure site in holding area using clippers. Right wrist prepped with Chloraprep by Laron Sung RN, then patient was draped. Skin intact. tsites 02: PM Time: 14:28 Oxygen on at 2 L/min per nasal cannula by Jacqueline Ramsey RN tsites 02: PM Clinical Presentation: Unstable angina tsites : PM Recorded ECG: HR=51 Condition=Condition 1 02: PM HR=51 bpm, LTOL=193/75 mmhg, SpO2=99.0 %, Resp=14 B/min 02:33 PM HR=56 bpm, EMXB=521/84 mmhg, SpO2=98.0 %, Resp=14 B/min 02:33 PM Time: 14:32 Oxygen on at 2 L/min per nasal cannula by Jacqueline Ramsey RN twilson :33 PM Time: 14:33 Patient comfortable and pain free: Yes twilson :33 PM Time: 14:33LOC: 5 = Fully awake and oriented or at pre-proc level twilson 02:34 PM Time: 14:34 Versed 2 mg Intravenous Given by Jacqueline Ramsey RN twilson 02:34 PM Time: 14:34 Fentanyl 50 mcg Intravenous Given by Jacqueline aRmsey RN twilson 02:37 PM ASA Class CLASS II- Mild systemic disease (i.e. well-controlled diabetes, hypertension, asthma, cigarette smoking) twilson 02:38 PM HR=54 bpm, SDNE=093/67 mmhg, SpO2=89.0 %, Resp=17 B/min 02:39 PM Time out was performed according to hospital policy. Conscious sedation and anesthesia was achieved (see medication log with in this report above) twilson 02:40 PM Time: 14:40 19 ml Lidocaine 2% to right groin Subcutaneous Given by Arcadio Thao MD, [facility] twilson :40 PM Pressure channel 1 zeroed. :41 PM Access obtained by percutaneous puncture. 6Fr 10cm Terumo [place] sheath placed in right Femoral artery. [id number] twilson 02:41 PM 5Fr FL 4 catheter inserted over the wire DNC twilson :41 PM Recorded Pressure: Ao, HR=55, Condition=Condition 1 (Aorta) Ao 101/62/79 02:41 PM Wire removed twilson 02:41 PM LCA angiography performed in multiple views. twilson 02:42 PM Recorded Pressure: Ao, HR=55, Condition=Condition 1 (Aorta) Ao 96/52/70 02:43 PM HR=53 bpm, HBPB=485/66 mmhg, SpO2=91.0 %, Resp=19 B/min 02:43 PM Wire reinserted. twilson 02:43 PM Catheter removed twilson 02:44 PM 5Fr FR 4 catheter inserted over the wire DN twilson 02:44 PM Recorded Pressure: Ao, HR=56, Condition=Condition 1 (Aorta) Ao 98/63/78 02:44 PM Wire removed, intact. twilson 02:44 PM RCA angiography performed in multiple views. twilson 02:45 PM Time: 14:45 Nitroglycerin 50 mcg Intracoronary Given by Arcadio Thao MD twilson 02:46 PM Wire reinserted. twilson 02:47 PM Catheter removed twilson 02:47 PM 5Fr Pigtail catheter inserted over the wire [facility] twilson 02:47 PM Catheter crossed the aortic valve and was selectively placed in the left ventricle. Pressures recorded on pullback for left heart catheterization. twilson 02:47 PM Wire removed twilson 02:47 PM Recorded Pressure: LV, HR=58, Condition=Condition 1 (Left Ventricle) LV 123/4/10 02:47 PM HR=57 bpm, ADPT=564/72 mmhg, SpO2=93.0 %, Resp=23 B/min 02:48 PM Bolus angiogram of left Ventricle complete: 10 ml/sec for a total of 20 mls twilson 02:48 PM Recorded Pressure: LV, Ao, HR=58, Condition=Condition 1 (Left Ventricle) LV 117/8/21, (Aorta) Ao 132/50/87 02:48 PM Time: 14:33LOC: 4 = Oriented but drowsy twilson 02:49 PM Time: 14:33 Patient comfortable and pain free: Yes twilson 02:49 PM Wire reinserted. Wire and catheter removed, intact. twilson 02:49 PM Bolus angiogram of right Femoral complete: 2 ml/sec for a total of 4 mls twilson 02:50 PM Coronary Dominance: right twilson 02:51 PM Lesion found in Proximal LMCA. Pre Stenosis: 30 Pre INDER Flow: twilson 02:51 PM Left Main Coronary Artery with 30% stenosis twilson 02:51 PM Procedure completed at 14:51 10/10/2018 twilson 02:51 PM Did you address INDER flow and Dominance? Yes twilson 02:53 PM HR=54 bpm, LMIB=660/63 mmhg, SpO2=94.0 %, Resp=21 B/min 02:54 PM Sign out completed: Radiation Dose 343.45 mGy, 4012.05 cGy/cm2 Fluoro Time: 1.4 Isovue 370 - 200ml contrast 62 ml given by Arcadio Thao MD, [facility]. Complications: None. The patient was discharged out of the sawyer cork slabs in stable condition. Cardiac Rehab Consult needed: YesConfirmed administered medications: Yes twilson 02:54 PM Isovue 370 - 200ml,1 Bottle(s) used. twilson 02:54 PM Arterial sheath pulled, Mynx closure device used and was Successful [id number] S/N. twilson 02:54 PM Estimated Blood Loss: minimal twilson 02:54 PM Post ECG Sinus Bradycardia twilson 02:55 PM Post Blood Pressure 127/63 twilson 02:55 PM 14:55 Post Pulses Bilateral DP & PT 1+ twilson 02:55 PM 14:55 Post Pulses Bilateral radial 2+ twilson 02:56 PM Information taught Cardiac Cath and Mynx twilson 02:56 PM Education needs Procedure, Plan of Care, and Responsibilities of Patient in Care twilson 02:56 PM Learning barriers :None twilson 02:56 PM Education Methods Verbal twilson 02:56 PM Education evaluation Able to repeat information twilson 02:56 PM Site status No bleeding/hematoma - Rt Groin as reported by Sites, Ana RT (R) at 14:56 twilson 02:56 PM Opsite applied twilson 02:56 PM Delay to floor No twilson 02:56 PM No family present. twilson 03:02 PM Report given to ER 2 South RN Pt taken to Other Room #2 [facility]. 15:02 twilson 03:05 PM Lesion found in Proximal RCA. Pre Stenosis: 60 Pre INDER Flow: twilson 03:05 PM Right Coronary, Right Posterior Descending Arteries with Right Posterolateral and Acute Marginal branches with 60 % stenosis. If graft is supplying this area, 0 % stenosis twilson 03:05 PM Patient out of room: 15:05 twilson Complications Complication None Hemodynamics Pressures Site Systolic/A Wave Diastolic/V Wave Mean AO 101 62 79 AO 96 52 70 AO 98 63 78 LV 123 4 10 LV 117 8 21 AO 132 50 87 Post Procedure Information Blood Pressure: 127/63 mmHg Rhythm: Sinus Bradycardia Post procedural instructions were given Closure Device Time Device Success/Fail 10/10/2018 3:00:00 PM MynxGrip Successful Site Checks Time Location Status Staff Sheath In? Note 02:56 PM Rt Groin No bleeding/hematoma Sites, Ana RT (R) Pulses Time Site Pre-Procedure Post-Procedure Note 10/10/2018 2:30:00 PM Bilateral DP & PT 1+ 10/10/2018 2:30:00 PM Bilateral radial 2+ 2:55:00 PM Bilateral DP & PT 1+ 2:55:00 PM Bilateral radial 2+ Updated by Ana Kan RT (R) on 10/10/2018 3:08:37 PM electronically signed on 10/10/2018 3:09:06 PM with status of Final
[2018-10-10] MEDS ORDERED: Isosorbide MONOnitrate (24 HR) 30 MG TAB.ER.24H PO ONE (16:10)
[2018-10-10] MEDS: Acetaminophen 325 MG TABLET PO PRN (18:32)
[2018-10-11 01:17] LABS: Bilirubin,Urine Small (Negative); Blood,Urine Negative (Negative); Clarity,Urine Clear (Clear); Color,Urine Yellow (Yellow); Glucose,Urine (UA) Normal (Normal); Ketones,Urine Negative (Negative); Leukocyte Esterase,Urine Negative (Negative); Nitrite,Urine Negative (Negative); PH,Urine 5.5 pH Units (5.0-8.0); Protein,Urine Trace mg/dL (Neg-Trace); Specific Gravity,Urine > 1.030 (1.010-1.025); Urobilinogen,Urine Normal (Normal)
[2018-10-11 01:36] LABS: Calcium Oxalate Crystals,Urine Present
[2018-10-11 01:37] LABS: Squamous Epithelial Cell,Urine Few per lpf (None-Few); WBC,Urine 0-3 per hpf (0-3)
[2018-10-11 01:38] LABS: Bacteria,Urine Few per hpf (None-Few)
[2018-10-11 04:38] LABS: Hematocrit 43.4 % (35.3-44.9); Hemoglobin 13.1 g/dL (11.5-15.4); Mean Corpuscular HGB Conc 30.2 g/dL (31.6-35.5); Mean Corpuscular Hemoglobin 25.6 pg (28.0-33.3); Mean Corpuscular Volume 84.8 fL (83.0-100.0); Mean Platelet Volume 10.3 fL (9.4-12.4); Platelet Count 178 K/mcL (140-400); Red Blood Count 5.12 M/mcL (3.82-4.97); Red Cell Distribution Width 15.9 % (11.5-14.5)
[2018-10-11 04:45] LABS: BUN/Creatinine Ratio 27 (6-26); Blood Urea Nitrogen 21 mg/dL (8-23); Calcium 8.7 mg/dL (8.6-10.3); Carbon Dioxide 30 mEq/L (23-29); Chloride 103 mEq/L (98-107); Glucose 87 mg/dL (70-105); Magnesium 2.2 mg/dL (1.6-2.6); Osmolality,Calculated 290 (280-300); Sodium 139 mEq/L (136-145); eGFR For Non-African Americans > 60 (> 60)
[2018-10-11] MEDS: Acetaminophen 325 MG TABLET PO PRN (06:52)
[2018-10-11 07:18] VITALS: BP 132/82
--- NOTE | 2018-10-11 07:55 | Event Note ---
Date of Encounter: 10/11/18 Time of Encounter: 07:53 - Cardiology Event Note C report reviewed with mild-moderate CAD. NO intervention needed. Continue asa, statin, BB. Imdur added. Cardiology will sign off, will arrange outpatient cardiology follow up.
[2018-10-11] MEDS: Aspirin 81 MG TAB.CHEW PO SCH (08:13)
[2018-10-11] MEDS: Furosemide 40 MG TABLET PO SCH (08:13)
[2018-10-11] MEDS: amLODIPine 5 MG TABLET PO SCH (08:13)
[2018-10-11] MEDS ORDERED: Isosorbide MONOnitrate (24 HR) 30 MG TAB.ER.24H PO SCH (09:00)
--- NOTE | 2018-10-11 09:47 | Discharge Summary ---
- NOTES TO OUTPATIENT PROVIDER Notes to Outpatient Provider: Patient was admitted for atypical chest pain with positive stress test and underwent left heart catheterization on 10/10. It showed moderate two-vessel disease without any need for PCI. She will be discharged on ASA, bb, CASEY-i, statin, and imdur. Orders not resulted at time of discharge: Pending orders 10/08/18 02:07 NM damion perf SPECT multi [NM] Routine Date of Encounter: 10/11/18 Time of Encounter: 07:30 - Discharge Diagnosis (1) Abnormal stress test Priority: Secondary Status: Acute (2) Chest pain Priority: Secondary Status: Acute Qualifiers: Chest pain type: unspecified Qualified Code(s): R07.9 - Chest pain, unspecified (3) HTN (hypertension) Priority: Secondary Status: Chronic Qualifiers: Hypertension type: essential hypertension Qualified Code(s): I10 - Essential (primary) hypertension (4) Cognitive developmental delay Priority: Secondary Status: Chronic (5) Diastolic CHF, chronic Priority: Secondary Status: Chronic (6) DVT prophylaxis Priority: Secondary Status: Acute (7) CAD (coronary artery disease) Priority: Primary Status: Acute Qualifiers: Coronary Disease-Associated Artery/Lesion type: ramona artery [place] vs. transplanted heart: ramona heart Associated angina: with stable angina Qualified Code(s): I25.118 - Atherosclerotic heart disease of ramona coronary artery with other forms of angina pectoris Hospital course: is a 63 year old female with PMHx of HTN, morbid obesity, cognitive developmental delay, who was admitted for atypical chest pain with positive stress test and underwent left heart catheterization on 10/10. It showed moderate two-vessel disease without any need for PCI. She will be discharged on ASA, bb, CASEY-i, statin, and imdur. Discharge discussed with: patient, nurse - Time Spent with Patient Total time spent providing and/or coordinating discharge services: 31 mins - Discharge Medications Prescriptions: Aspirin 81 mg PO DAILY #30 tab.chew Atorvastatin [Lipitor] 40 mg PO HS #30 tablet Isosorbide MONOnitrate (24 HR) [Imdur] 30 mg PO DAILY #30 tab.er.24h Home Medications: Cholecalciferol (D-3) [Vitamin D] 1,000 unit PO DAILY 03/29/17 [History] Citalopram [CeleXA] 20 mg PO DAILY 03/29/17 [History] Oxybutynin Chloride [Ditropan Xl] 5 mg PO DAILY 03/29/17 [History] Triamcinolone Acet 0.1% CRM [Kenalog] 1 appl TP 2XW 03/29/17 [History] traZODone [TraZODone] 100 mg PO HS PRN 03/29/17 [History] Lisinopril [Zestril] 20 mg PO DAILY #30 tablet 03/31/17 [Rx] amLODIPine [Norvasc] 10 mg PO DAILY #60 tablet 03/31/17 [Rx] Acetaminophen [Tylenol] 500 mg PO PRN PRN 10/08/18 [History] Acitretin [Soriatane] 25 mg PO SUWEFR 10/08/18 [History] Acitretin [Soriatane] 50 mg PO MOTUTHFR 10/08/18 [History] Furosemide [Lasix] 40 mg PO DAILY 10/08/18 [History] Metoprolol [Lopressor] 50 mg PO DAILY 10/08/18 [History] Aspirin 81 mg PO DAILY #30 tab.chew 10/11/18 [Rx] Atorvastatin [Lipitor] 40 mg PO HS #30 tablet 10/11/18 [Rx] Isosorbide MONOnitrate (24 HR) [Imdur] 30 mg PO DAILY #30 tab.er.24h 10/11/18 [Rx] Allergies/Adverse Reactions: Allergy/AdvReac Type Severity Reaction Status Date / Time Sulfa (Sulfonamide Allergy Caregiver Verified 08/08/18 17:40 Antibiotics) uncertain of reaction, states "she is allergic" codeine AdvReac See Verified 08/08/18 17:40 [From Tylenol-Codeine #3] Comments Date of admission: 10/07/18 23:24 Primary care physician: PCP NONE Consults: 10/09/18 12:29 Consult to Cardiology [CONS] Routine Comment: Consulting Provider: Cardiology Rosanna Reason for Consult: abnormal stress Call Completed: Yes 10/09/18 13:24 Consult to Gaming Pit Boss [CONS] Routine Reason for SW Consult: possible LHC, consent, medical decisions given intellectual disability. POA? - Constitutional Vitals: Temp Pulse Resp BP Pulse Ox 97.4 F L 56 20 132/82 100 10/11/18 07:15 10/11/18 07:15 10/11/18 07:15 10/11/18 07:15 10/11/18 07:15 General appearance: Present: cooperative, A&O X 3, pleasant, obese, answers questions appropriately Exam: Gen.: Alert and oriented 3, no acute distress Heart: Regular rate and rhythm, no murmurs Lungs: Clear to auscultation bilaterally, no rales, rhonchi, wheezes Abdomen: Soft, nontender, nondistended. Normoactive bowel sounds. R groin bruising noted without palpable mass. Neurovascularly intact distally. Extremities: No clubbing, cyanosis, edema noted - Patient Status Disposition: Home, Self-Care Condition: Fair Functional capacity at discharge: independent ambulation Overall status at discharge: patient is progressing back to baseline - Discharge Instructions Instructions: Chest Pain (DC) Follow Up With: NONE,PCP [Primary Care Provider] - Additional Instructions: Non-obstructive CAD on [facility]. Medical therapy with ASA, statin, bb, casey-i, and imdur Follow up with Cardiology outpatient. - Diet and Activity Activity: resume usual activities as tolerated Diet: low salt diet
== END 2018-10-11 14:40 | disposition home or self-care (01) ==
LOC: 2SOUTHHOLD 17:46 → EMEROOARM 17:46 → SUATTDRO 23:24 → 2SOUTHHOLD 23:26 → 2NENU 10-10 20:32
PROVIDERS: ADMIT Internal Medicine; ATTEND Internal Medicine

== ENCOUNTER 2018-11-01 16:12 | Observation (INO) ==
[2018-11-01] MEDS ORDERED: Ipratropium/Albuterol Neb 3 ML IH ONE (16:34)
[2018-11-01] MEDS ORDERED: 0.9 % Sodium Chloride 1,000 ML IVC ONE (16:35)
--- NOTE | 2018-11-01 16:41 | Emergency Department Note ---
Disposition Clinical Impression: Febrile illness Pneumonia Qualifiers: Pneumonia type: due to unspecified organism Laterality: unspecified laterality Lung location: unspecified part of lung Qualified Code(s): J18.9 - Pneumonia, unspecified organism Sepsis Qualifiers: Sepsis type: sepsis due to unspecified organism Qualified Code(s): A41.9 - Sepsis, unspecified organism Disposition: Admitted As Inpatient Condition: Fair Referrals: Nicki Loco [Primary Care Provider] - Forms: ED Satisfaction Letter Time of Disposition: 17:42 General Adult HPI - General Chief complaint: ED Shortness of Breath/Dyspnea Stated complaint: Cough Nausea Sore Throat Time Seen by Provider: 11/01/18 16:16 Source: patient, other Mode of arrival: ambulatory Limitations: no limitations, other Nursing Notes Reviewed: Yes Vital Signs Reviewed: Yes - History of Present Illness HPI Narrative: 63-year-old female with a history of CHF, CAD, recent consultation for pneumonia persists for evaluation of dyspnea. Patient describes a history of noting a productive cough. Patient does have baseline cough however is worsened acutely. Does note fever that started yesterday. Patient's also having chest pain. Patient has chest pain related the cough. Patient also has a sore throat related the cough with episodes of posttussive emesis. Patient typically is on nasal cannula at night however is requiring more oxygen during the day. Denying any abdominal pain. No nausea. Patient does have a recent hospitalization that the caregiver says had pneumonia. Patient also has recent heart catheter. Pain Scale: 0 - Related Data Home Medications Medication Instructions Recorded Confirmed Cholecalciferol (D-3) [Vitamin D] 1,000 unit PO DAILY 03/29/17 10/08/18 Citalopram [CeleXA] 20 mg PO DAILY 03/29/17 10/08/18 Oxybutynin Chloride [Ditropan Xl] 5 mg PO DAILY 03/29/17 10/08/18 Triamcinolone Acet 0.1% CRM 1 appl TP 2XW 03/29/17 10/08/18 [Kenalog] traZODone [TraZODone] 100 mg PO HS PRN 03/29/17 10/08/18 Acetaminophen [Tylenol] 500 mg PO PRN PRN 10/08/18 10/08/18 Acitretin [Soriatane] 25 mg PO SUWEFR 10/08/18 10/08/18 Acitretin [Soriatane] 50 mg PO MOTUTHFR 10/08/18 10/08/18 Furosemide [Lasix] 40 mg PO DAILY 10/08/18 10/08/18 Metoprolol [Lopressor] 50 mg PO DAILY 10/08/18 10/08/18 Previous Rx's Medication Instructions Recorded Lisinopril [Zestril] 20 mg PO DAILY #30 tablet 03/31/17 amLODIPine [Norvasc] 10 mg PO DAILY #60 tablet 03/31/17 Aspirin 81 mg PO DAILY #30 tab.chew 10/11/18 Atorvastatin [Lipitor] 40 mg PO HS #30 tablet 10/11/18 Isosorbide MONOnitrate (24 HR) 30 mg PO DAILY #30 tab.er.24h 10/11/18 [Imdur] Allergies Allergy/AdvReac Type Severity Reaction Status Date / Time Sulfa (Sulfonamide Allergy Caregiver Verified 08/08/18 17:40 Antibiotics) uncertain of reaction, states "she is allergic" codeine AdvReac See Verified 08/08/18 17:40 [From Tylenol-Codeine #3] Comments All systems ED: reviewed and negative except as stated. Constitutional: Denies: fever Cardiovascular: Denies: chest pain Respiratory: Reports: cough, dyspnea, sputum production Gastrointestinal: Reports: vomiting. Denies: abdominal pain Past Medical History - Past Medical History Source: patient Medical history: Reports: CHF, diabetes, hyperlipidemia, hypertension Surgical history: Reports: no surgical history Psychiatric history: Reports: anxiety, depression, other COMPRESS TRUCKER history: Reports: no COMPRESS TRUCKER history - Social History Smoking Status: Never smoker Smokeless Tobacco Status: No Alcohol use: Reports: none Drug use: Reports: none Physical Exam - General Limitations: other General appearance: alert, in no apparent distress - Head Head exam: atraumatic, normocephalic, normal inspection - Eye Eye exam: Present: normal appearance, EOMI - ENT ENT exam: normal exam, mucous membranes dry - Neck Neck exam: Present: normal inspection - Chest Chest inspection: Present: normal inspection, symmetric chest wall rise - Respiratory Respiratory exam: Present: wheezes (Scattered expiratory), prolonged expiratory phase - Cardiovascular Cardiovascular exam: Present: regular rate, normal rhythm. Absent: systolic murmur - Abdominal Exam Abdominal exam: Present: soft, Non-Tender - Extremities Exam Extremities exam: Present: normal inspection. Absent: pedal edema - Back Exam Back exam: Present: normal inspection - Neurological Exam Neurological exam: Present: alert, oriented X3, CN II-XII intact - Skin Skin exam: Present: warm, dry, intact, normal color Course Course Narrative: Patient seen and examined. Patient does meet SIRS criteria with fever and tachypnea. Patient has history of pneumonia. Patient be treated empirically. Patient did not receive the 30 mL/kg fluid boluses she does have evidence of prior CAD and document history of heart failure however the patient will be treated gradually with IV fluids. Recent heart catheter shows 2 vessel disease with EF of 55%. Patient will get basic labs influenza swab as well as chest x- ray and admission. - Reevaluation(s) Reevaluation #1: Patient's updated on plan of care. Time: 18:23 Vital Signs Temperature 102.1 F H 11/01/18 16:15 Pulse Rate 82 11/01/18 16:15 Respiratory Rate 24 11/01/18 16:15 Blood Pressure 136/77 11/01/18 16:15 O2 Sat by Pulse Oximetry 84 11/01/18 16:15 Temperature 102.1 F H 11/01/18 16:15 Pulse Rate 82 11/01/18 16:15 Respiratory Rate 20 11/01/18 16:47 Blood Pressure 136/77 11/01/18 16:15 O2 Sat by Pulse Oximetry 96 11/01/18 16:47 Oxygen Delivery Oxygen Delivery Room Air Medical Decision Making - [facility] Narrative Medical decision making narrative: Patient presented for concerns of cough sore throat nausea. Patient was re cently hospitalized. Given the patient's increased work of breathing cough as well as a fever patient clinically has pneumonia was started on Vanco and Zosyn. Patient's symptoms are not associated consistent with ACS with a negative troponin. Patient's chest x-ray shows cardiomegaly. No focality noted on chest x-ray however patient did present early on in the illness. Patient influenza was negative. Patient is still there are 2 L at night now requiring an during the day. Patient symptoms are not consistent with a PE. Patient's BNP is not significantly elevated from prior values. Patient did not receive the 30 mL/kg bolus given unknown cardiopulmonary function at this time with signs of congestion on chest x-ray. - Lab Data Lab results reviewed: Yes I reviewed the patient's lab results. Result diagrams: 11/01/18 16:30 11/01/18 16:30 Lab Results 11/01/18 11/01/18 11/01/18 Range/Units 16:30 16:30 16:30 WBC 8.1 (4.3-11.1) K/mcL RBC 4.71 (3.82-4.97) M/mcL Hgb 12.1 (11.5-15.4) g/dL Hct 39.3 (35.3-44.9) % MCV 83.4 (83.0-100.0) fL MCH 25.7 L (28.0-33.3) pg MCHC 30.8 L (31.6-35.5) g/dL RDW 15.6 H (11.5-14.5) % Plt Count 185 (140-400) K/mcL MPV 10.4 (9.4-12.4) fL Immature Gran % 0.5 (0-4) % Seg Neutrophils % 73.1 % Lymphocytes % 15.1 % Monocytes % 10.0 % Eosinophils % 1.1 % Basophils % 0.2 % Neutrophils # 5.9 (1.6-8.9) K/mcL Lymphocytes # 1.2 (0.6-4.6) K/mcL Monocytes # 0.8 (0.0-1.3) K/mcL Eosinophils # 0.1 (0.0-0.6) K/mcL Basophils # 0.0 (0.0-0.2) K/mcL PT 13.4 H (9.4-12.1) Seconds INR 1.2 VBG pH (7.32-7.42) pH Units VBG pCO2 (41-51) mmHg VBG pO2 (25-50) mmHg VBG HCO3 (21-27) mEq/L Sodium 137 (136-145) mEq/L Potassium 3.1 L (3.5-5.1) mEq/L Chloride 97 L (98-107) mEq/L Carbon Dioxide 31 H (23-29) mEq/L BUN 16 (8-23) mg/dL Creatinine 0.81 (0.60-1.20) mg/dL Est GFR ( Amer) > 60 (> 60) Est GFR (Non-Af Amer) > 60 (> 60) BUN/Creatinine Ratio 20 (6-26) Glucose 113 H (70-105) mg/dL Calculated Osmolality 286 (280-300) Lactic Acid (0.5-2.2) mmol/L Calcium 8.7 (8.6-10.3) mg/dL Phosphorus 2.3 L (2.7-4.5) mg/dL Magnesium 1.9 (1.6-2.6) mg/dL Total Bilirubin 0.6 (0.3-1.0) mg/dL Direct Bilirubin 0.2 (0.0-0.2) mg/dL Indirect Bilirubin 0.4 (0.0-1.2) mg/dL AST 21 (13-39) Units/L ALT 15 (7-52) Units/L Alkaline Phosphatase 105 H (34-104) Units/L Troponin I < 0.03 (< 0.04) ng/mL B-Natriuretic Peptide (Less than 100) pg/mL Serum Total Protein 7.1 (6.4-8.9) g/dL Albumin 3.9 (3.5-5.7) g/dL Globulin 3.2 (2.4-3.5) g/dL Albumin/Globulin Ratio 1.2 (1.1-2.2) 11/01/18 11/01/18 11/01/18 Range/Units 16:30 16:30 17:01 WBC (4.3-11.1) K/mcL RBC (3.82-4.97) M/mcL Hgb (11.5-15.4) g/dL Hct (35.3-44.9) % MCV (83.0-100.0) fL MCH (28.0-33.3) pg MCHC (31.6-35.5) g/dL RDW (11.5-14.5) % Plt Count (140-400) K/mcL MPV (9.4-12.4) fL Immature Gran % (0-4) % Seg Neutrophils % % Lymphocytes % % Monocytes % % Eosinophils % % Basophils % % Neutrophils # (1.6-8.9) K/mcL Lymphocytes # (0.6-4.6) K/mcL Monocytes # (0.0-1.3) K/mcL Eosinophils # (0.0-0.6) K/mcL Basophils # (0.0-0.2) K/mcL PT (9.4-12.1) Seconds INR VBG pH 7.41 (7.32-7.42) pH Units VBG pCO2 52 H (41-51) mmHg VBG pO2 68 H (25-50) mmHg VBG HCO3 33 H (21-27) mEq/L Sodium (136-145) mEq/L Potassium (3.5-5.1) mEq/L Chloride (98-107) mEq/L Carbon Dioxide (23-29) mEq/L BUN (8-23) mg/dL Creatinine (0.60-1.20) mg/dL Est GFR ( Amer) (> 60) Est GFR (Non-Af Amer) (> 60) BUN/Creatinine Ratio (6-26) Glucose (70-105) mg/dL Calculated Osmolality (280-300) Lactic Acid 1.2 (0.5-2.2) mmol/L Calcium (8.6-10.3) mg/dL Phosphorus (2.7-4.5) mg/dL Magnesium (1.6-2.6) mg/dL Total Bilirubin (0.3-1.0) mg/dL Direct Bilirubin (0.0-0.2) mg/dL Indirect Bilirubin (0.0-1.2) mg/dL AST (13-39) Units/L ALT (7-52) Units/L Alkaline Phosphatase (34-104) Units/L Troponin I (< 0.04) ng/mL B-Natriuretic Peptide 180 H (Less than 100) pg/mL Serum Total Protein (6.4-8.9) g/dL Albumin (3.5-5.7) g/dL Globulin (2.4-3.5) g/dL Albumin/Globulin Ratio (1.1-2.2) - Radiology Data Radiology results reviewed: Yes I reviewed the patient's radiology results. Chest X-Ray 11/01/18 16:33 IMPRESSION: Stable cardiomegaly with pulmonary vascular congestion. D/ / Isabell Prado MD / Isabell Prado MD Interpreting Provider: Isabell Prado MD - EKG Data EKG #1 EKG attestation: Yes I reviewed and interpreted this EKG. EKG shows normal: sinus rhythm Rate: normal Rhythm: NSR [place]/QRS: normal Interpretation: no acute changes, nonspecific ST-T wave changes S.B.AAna Maria - James Situation: Demographics Background: Presenting Complaint Assessment: Vital Signs, Course and respsone to treatment, Patient/Family Expectation Recommendation: Barrier(s) to disposition, Recommendation based on pending studies, treatments, or consults S.B.A.Bella Report Given to: Dr. Arturo Ramirez Repor Time: 17:37
[2018-11-01] MEDS ORDERED: Piperacillin/Tazobactam 3.375 GM in Water for inj. (sterile) 20 ML 20 ML IVP ONE (16:46)
[2018-11-01 16:49] LABS: Basophils % 0.2 %; Eosinophils # 0.1 K/mcL (0.0-0.6); Eosinophils % 1.1 %; Hematocrit 39.3 % (35.3-44.9); Hemoglobin 12.1 g/dL (11.5-15.4); Immature Granulocytes % 0.5 % (0-4); Lymphocytes # 1.2 K/mcL (0.6-4.6); Lymphocytes % 15.1 %; Mean Corpuscular HGB Conc 30.8 g/dL (31.6-35.5); Mean Corpuscular Hemoglobin 25.7 pg (28.0-33.3); Mean Corpuscular Volume 83.4 fL (83.0-100.0); Mean Platelet Volume 10.4 fL (9.4-12.4); Monocytes # 0.8 K/mcL (0.0-1.3); Neutrophils # 5.9 K/mcL (1.6-8.9); Platelet Count 185 K/mcL (140-400); Red Blood Count 4.71 M/mcL (3.82-4.97); Red Cell Distribution Width 15.6 % (11.5-14.5); Segmented Neutrophils % 73.1 %
[2018-11-01 16:56] LABS: INR 1.2; Prothrombin Time 13.4 Seconds (9.4-12.1)
[2018-11-01 17:10] LABS: Troponin I < 0.03 ng/mL (< 0.04)
[2018-11-01 17:10] LABS: VBG HCO3 33 mEq/L (21-27); VBG PCO2 52 mmHg (41-51); VBG PH 7.41 pH Units (7.32-7.42); VBG PO2 68 mmHg (25-50)
[2018-11-01 17:11] LABS: Alanine Aminotransferase 15 Units/L (7-52); Albumin 3.9 g/dL (3.5-5.7); Albumin/Globulin Ratio 1.2 (1.1-2.2); Alkaline Phosphatase 105 Units/L (34-104); Aspartate Amino Transferase 21 Units/L (13-39); BUN/Creatinine Ratio 20 (6-26); Bilirubin,Direct 0.2 mg/dL (0.0-0.2); Bilirubin,Indirect 0.4 mg/dL (0.0-1.2); Bilirubin,Total 0.6 mg/dL (0.3-1.0); Blood Urea Nitrogen 16 mg/dL (8-23); Calcium 8.7 mg/dL (8.6-10.3); Carbon Dioxide 31 mEq/L (23-29); Chloride 97 mEq/L (98-107); Globulin 3.2 g/dL (2.4-3.5); Glucose 113 mg/dL (70-105); Magnesium 1.9 mg/dL (1.6-2.6); Osmolality,Calculated 286 (280-300); Phosphorous 2.3 mg/dL (2.7-4.5); Potassium 3.1 mEq/L (3.5-5.1); Sodium 137 mEq/L (136-145); Total Protein 7.1 g/dL (6.4-8.9); eGFR For Non-African Americans > 60 (> 60)
[2018-11-01] MEDS ORDERED: Naloxone 0.4 MG/ML INJ IVP PRN (17:40)
--- NOTE | 2018-11-01 17:58 | Internal Med History&Physical ---
Date of Encounter: 11/01/18 Time of Encounter: 17:40 Internal Medicine - H&P: HPI Chief complaint: fever, cough Admitted From: Long-term Nursing Facility History of present illness: is a 63 year old female with past medical history of asthma, hypertension, morbid obesity, cognitive developmental delay, CAD s/p recent LHC in 10/2018 without PCI, presented to the ED from [facility] due to 3 day history of fever and cough. Associated with mild shortness of breath and yellowish sputum production. Denies any chest pain, palpitation, orthopnea, PND, or leg swelling. No nausea/vomiting, abdominal pain, change in bowel habits, or dys uria. No joint pain or rash. In the ED, she was febrile at 102.1 but otherwise hemodynamically stable. Slightly tachypneic at 24 and was saturating 84% on RA -> improved to 95% on 2L of O2. Workup shows normal white blood cell count, hypokalemia of 3.1, and normal Cr. Troponin -ve, lactic acid normal. Flu swab negative. CXR did not show any obvious consolidation. Pt was started on vanc/zosyn and admitted for further management. Past Med Surg Social Fam HX - Past Medical History Attestation: Yes The following information was validated with the patient. Medical history: asthma, coronary artery disease, hyperlipidemia, hypertension Psychiatric history: anxiety, depression, other - Past Surgical History Surgical History: no surgical history - Social History Smoking Status: Never smoker Smokeless Tobacco Status: No Alcohol use: none Drug use: none - Family History Mother Living Status: Hx Family Cardiac Disorders: Yes (heart disease) Hx Family Cancer: Yes (Colon cancer) Hx Family Endocrine Disorder: Yes (Diabetes) Father Living Status: Hx Family Endocrine Disorder: Yes (Diabetes) Sister Living Status: Hx Family Cardiac Disorders: Yes (CAD) Internal Medicine - H&P: Meds Cholecalciferol (D-3) [Vitamin D] 1,000 unit PO DAILY 03/29/17 [History] Citalopram [CeleXA] 20 mg PO DAILY 03/29/17 [History] Oxybutynin Chloride [Ditropan Xl] 5 mg PO DAILY 03/29/17 [History] Triamcinolone Acet 0.1% CRM [Kenalog] 1 appl TP 2XW 03/29/17 [History] traZODone [TraZODone] 100 mg PO HS PRN 03/29/17 [History] Lisinopril [Zestril] 20 mg PO DAILY #30 tablet 03/31/17 [Rx] amLODIPine [Norvasc] 10 mg PO DAILY #60 tablet 03/31/17 [Rx] Acetaminophen [Tylenol] 500 mg PO PRN PRN 10/08/18 [History] Acitretin [Soriatane] 25 mg PO SUWEFR 10/08/18 [History] Acitretin [Soriatane] 50 mg PO MOTUTHFR 10/08/18 [History] Furosemide [Lasix] 40 mg PO DAILY 10/08/18 [History] Metoprolol [Lopressor] 50 mg PO DAILY 10/08/18 [History] Aspirin 81 mg PO DAILY #30 tab.chew 10/11/18 [Rx] Atorvastatin [Lipitor] 40 mg PO HS #30 tablet 10/11/18 [Rx] Isosorbide MONOnitrate (24 HR) [Imdur] 30 mg PO DAILY #30 tab.er.24h 10/11/18 [Rx] Allergy/AdvReac Type Severity Reaction Status Date / Time Sulfa (Sulfonamide Allergy Caregiver Verified 08/08/18 17:40 Antibiotics) uncertain of reaction, states "she is allergic" codeine AdvReac See Verified 08/08/18 17:40 [From Tylenol-Codeine #3] Comments All Systems PM: A 10-system review of systems was performed and is negative for pertinent findings except as documented above in the HPI. - Constitutional Vitals: Temp Pulse Resp BP Pulse Ox 102.1 F H 82 20 136/77 96 11/01/18 16:15 11/01/18 16:15 11/01/18 16:47 11/01/18 16:15 11/01/18 16:47 Exam: General: Alert and oriented, not in acute distress. HEENT:EOMI, pupils equal, round and reactive. Cardiovascular:Normal S1 & S2, No JVD. Pulse regular. No LE edema Lungs: scattered wheezes bilaterally, no rales Abdomen:Soft, non-tender, no rigidity. Extremities:No deformity or swelling Neurological: grossly non-focal Skin:Normal color, no rash, no lesions. Pulses:Carotid and radial pulses normal +2. Rest of the physical exam is non contributory Internal Med - H&P Results - Labs CBC & Chem 7: 11/01/18 16:30 11/01/18 16:30 Labs: Short CBC 11/01/18 Range/Units 16:30 WBC 8.1 (4.3-11.1) K/mcL Hgb 12.1 (11.5-15.4) g/dL Hct 39.3 (35.3-44.9) % Plt Count 185 (140-400) K/mcL Neutrophils # 5.9 (1.6-8.9) K/mcL BMP 11/01/18 16:30 Sodium 137 Potassium 3.1 L Chloride 97 L Carbon Dioxide 31 H BUN 16 Creatinine 0.81 Glucose 113 H Calcium 8.7 Cardiac Enzymes 11/01/18 Range/Units 16:30 Troponin I < 0.03 (< 0.04) ng/mL Liver Function 11/01/18 Range/Units 16:30 Total Bilirubin 0.6 (0.3-1.0) mg/dL Direct Bilirubin 0.2 (0.0-0.2) mg/dL AST 21 (13-39) Units/L ALT 15 (7-52) Units/L Alkaline Phosphatase 105 H (34-104) Units/L Albumin 3.9 (3.5-5.7) g/dL - ABG Interpretation ABG results: 11/01/18 17:01 VBG pH 7.41 VBG pCO2 52 H VBG pO2 68 H VBG HCO3 33 H - Impressions ITS Impressions Chest X-Ray 11/01/18 16:33 IMPRESSION: Stable cardiomegaly with pulmonary vascular congestion. D/ / Isabell Prado MD / Isabell Prado MD Interpreting Provider: Isabell Prado MD - Assessment and plan (1) Asthmatic bronchitis Current Visit: Yes Status: Acute Assessment and plan: presented with fever, cough, sputum production in the absence of leukocytosis or obvious infiltrate on CXR wheezing on exam could be compatible with asthmatic bronchitis will start IV solumedrol and scheduled bronchodilators will also start IV azithromycin, which should cover for atypical PNA that may not be radiologically apparent at this point was given vanc/zosyn, hold off on further abx for now check RIP, sputum culture, strep/legionella ag requiring 2L of O2 for now, wean down if possible Qualifiers: Asthma severity: unspecified severity Asthma persistence: unspecified Asthma complication type: with acute exacerbation Qualified Code(s): J45.901 - Unspecified asthma with (acute) exacerbation (2) CAD (coronary artery disease) Current Visit: No Status: Chronic Assessment and plan: recent C in 10/2018, noncritical stenosis resume home meds Qualifiers: Coronary Disease-Associated Artery/Lesion type: [place] artery [place] vs. transplanted heart: [place] heart Associated angina: with stable angina Qualified Code(s): I25.118 - Atherosclerotic heart disease of [place] coronary artery with other forms of angina pectoris (3) HTN (hypertension) Current Visit: No Status: Chronic Assessment and plan: Resume home meds once reconciled Qualifiers: Hypertension type: essential hypertension Qualified Code(s): I10 - Essential (primary) hypertension (4) Obesity (BMI 30-39.9) Current Visit: No Status: Chronic Assessment and plan: lifestyle modifications emphasized (5) DVT prophylaxis Current Visit: No Status: Acute Assessment and plan: SQ heparin - Time Spent With Patient Total time spent is greater than 50% in coordination of care (as documented) at patient's floor/unit and/or counseling patient:
[2018-11-01] MEDS ORDERED: Acetaminophen 325 MG TABLET PO PRN (18:07)
--- NOTE | 2018-11-01 18:19 | Emergency Department Note ---
Disposition Clinical Impression: Febrile illness Pneumonia Qualifiers: Pneumonia type: due to unspecified organism Laterality: unspecified laterality Lung location: unspecified part of lung Qualified Code(s): J18.9 - Pneumonia, unspecified organism Sepsis Qualifiers: Sepsis type: sepsis due to unspecified organism Qualified Code(s): A41.9 - Sepsis, unspecified organism Disposition: Admitted As Inpatient Condition: Fair Referrals: Nicki Loco [Primary Care Provider] - Forms: ED Satisfaction Letter General Adult HPI - General Chief complaint: ED Shortness of Breath/Dyspnea Stated complaint: Cough Nausea Sore Throat Time Seen by Provider: 11/01/18 16:16 Source: patient, other Mode of arrival: ambulatory Limitations: other - History of Present Illness Pain Scale: 0 - Related Data Home Medications Medication Instructions Recorded Confirmed Cholecalciferol (D-3) [Vitamin D] 1,000 unit PO DAILY 03/29/17 10/08/18 Citalopram [CeleXA] 20 mg PO DAILY 03/29/17 10/08/18 Oxybutynin Chloride [Ditropan Xl] 5 mg PO DAILY 03/29/17 10/08/18 Triamcinolone Acet 0.1% CRM 1 appl TP 2XW 03/29/17 10/08/18 [Kenalog] traZODone [TraZODone] 100 mg PO HS PRN 03/29/17 10/08/18 Acetaminophen [Tylenol] 500 mg PO PRN PRN 10/08/18 10/08/18 Acitretin [Soriatane] 25 mg PO SUWEFR 10/08/18 10/08/18 Acitretin [Soriatane] 50 mg PO MOTUTHFR 10/08/18 10/08/18 Furosemide [Lasix] 40 mg PO DAILY 10/08/18 10/08/18 Metoprolol [Lopressor] 50 mg PO DAILY 10/08/18 10/08/18 Previous Rx's Medication Instructions Recorded Lisinopril [Zestril] 20 mg PO DAILY #30 tablet 03/31/17 amLODIPine [Norvasc] 10 mg PO DAILY #60 tablet 03/31/17 Aspirin 81 mg PO DAILY #30 tab.chew 10/11/18 Atorvastatin [Lipitor] 40 mg PO HS #30 tablet 10/11/18 Isosorbide MONOnitrate (24 HR) 30 mg PO DAILY #30 tab.er.24h 10/11/18 [Imdur] Allergies Allergy/AdvReac Type Severity Reaction Status Date / Time Sulfa (Sulfonamide Allergy Caregiver Verified 08/08/18 17:40 Antibiotics) uncertain of reaction, states "she is allergic" codeine AdvReac See Verified 08/08/18 17:40 [From Tylenol-Codeine #3] Comments Constitutional: Denies: fever Cardiovascular: Denies: chest pain Respiratory: Reports: cough, dyspnea, sputum production Gastrointestinal: Reports: vomiting. 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 TIMBER FRAMER HELPER history - Social History Smoking Status: Never smoker Smokeless Tobacco Status: No Alcohol use: Reports: none Drug use: Reports: none Physical Exam - General Limitations: other General appearance: alert, in no apparent distress Course Vital Signs Temperature 102.1 F H 11/01/18 16:15 Pulse Rate 82 11/01/18 16:15 Respiratory Rate 24 11/01/18 16:15 Blood Pressure 136/77 11/01/18 16:15 O2 Sat by Pulse Oximetry 84 11/01/18 16:15 Temperature 102.1 F H 11/01/18 16:15 Pulse Rate 82 11/01/18 16:15 Respiratory Rate 20 11/01/18 16:47 Blood Pressure 136/77 11/01/18 16:15 O2 Sat by Pulse Oximetry 96 11/01/18 16:47 Oxygen Delivery Oxygen Delivery Room Air Medical Decision Making - Lab Data Result diagrams: 11/01/18 16:30 11/01/18 16:30 Lab Results 11/01/18 11/01/18 11/01/18 Range/Units 16:30 16:30 16:30 WBC 8.1 (4.3-11.1) K/mcL RBC 4.71 (3.82-4.97) M/mcL Hgb 12.1 (11.5-15.4) g/dL Hct 39.3 (35.3-44.9) % MCV 83.4 (83.0-100.0) fL MCH 25.7 L (28.0-33.3) pg MCHC 30.8 L (31.6-35.5) g/dL RDW 15.6 H (11.5-14.5) % Plt Count 185 (140-400) K/mcL MPV 10.4 (9.4-12.4) fL Immature Gran % 0.5 (0-4) % Seg Neutrophils % 73.1 % Lymphocytes % 15.1 % Monocytes % 10.0 % Eosinophils % 1.1 % Basophils % 0.2 % Neutrophils # 5.9 (1.6-8.9) K/mcL Lymphocytes # 1.2 (0.6-4.6) K/mcL Monocytes # 0.8 (0.0-1.3) K/mcL Eosinophils # 0.1 (0.0-0.6) K/mcL Basophils # 0.0 (0.0-0.2) K/mcL PT 13.4 H (9.4-12.1) Seconds INR 1.2 VBG pH (7.32-7.42) pH Units VBG pCO2 (41-51) mmHg VBG pO2 (25-50) mmHg VBG HCO3 (21-27) mEq/L Sodium 137 (136-145) mEq/L Potassium 3.1 L (3.5-5.1) mEq/L Chloride 97 L (98-107) mEq/L Carbon Dioxide 31 H (23-29) mEq/L BUN 16 (8-23) mg/dL Creatinine 0.81 (0.60-1.20) mg/dL Est GFR ( Amer) > 60 (> 60) Est GFR (Non-Af Amer) > 60 (> 60) BUN/Creatinine Ratio 20 (6-26) Glucose 113 H (70-105) mg/dL Calculated Osmolality 286 (280-300) Lactic Acid (0.5-2.2) mmol/L Calcium 8.7 (8.6-10.3) mg/dL Phosphorus 2.3 L (2.7-4.5) mg/dL Magnesium 1.9 (1.6-2.6) mg/dL Total Bilirubin 0.6 (0.3-1.0) mg/dL Direct Bilirubin 0.2 (0.0-0.2) mg/dL Indirect Bilirubin 0.4 (0.0-1.2) mg/dL AST 21 (13-39) Units/L ALT 15 (7-52) Units/L Alkaline Phosphatase 105 H (34-104) Units/L Troponin I < 0.03 (< 0.04) ng/mL B-Natriuretic Peptide (Less than 100) pg/mL Serum Total Protein 7.1 (6.4-8.9) g/dL Albumin 3.9 (3.5-5.7) g/dL Globulin 3.2 (2.4-3.5) g/dL Albumin/Globulin Ratio 1.2 (1.1-2.2) 11/01/18 11/01/18 11/01/18 Range/Units 16:30 16:30 17:01 WBC (4.3-11.1) K/mcL RBC (3.82-4.97) M/mcL Hgb (11.5-15.4) g/dL Hct (35.3-44.9) % MCV (83.0-100.0) fL MCH (28.0-33.3) pg MCHC (31.6-35.5) g/dL RDW (11.5-14.5) % Plt Count (140-400) K/mcL MPV (9.4-12.4) fL Immature Gran % (0-4) % Seg Neutrophils % % Lymphocytes % % Monocytes % % Eosinophils % % Basophils % % Neutrophils # (1.6-8.9) K/mcL Lymphocytes # (0.6-4.6) K/mcL Monocytes # (0.0-1.3) K/mcL Eosinophils # (0.0-0.6) K/mcL Basophils # (0.0-0.2) K/mcL PT (9.4-12.1) Seconds INR VBG pH 7.41 (7.32-7.42) pH Units VBG pCO2 52 H (41-51) mmHg VBG pO2 68 H (25-50) mmHg VBG HCO3 33 H (21-27) mEq/L Sodium (136-145) mEq/L Potassium (3.5-5.1) mEq/L Chloride (98-107) mEq/L Carbon Dioxide (23-29) mEq/L BUN (8-23) mg/dL Creatinine (0.60-1.20) mg/dL Est GFR ( Amer) (> 60) Est GFR (Non-Af Amer) (> 60) BUN/Creatinine Ratio (6-26) Glucose (70-105) mg/dL Calculated Osmolality (280-300) Lactic Acid 1.2 (0.5-2.2) mmol/L Calcium (8.6-10.3) mg/dL Phosphorus (2.7-4.5) mg/dL Magnesium (1.6-2.6) mg/dL Total Bilirubin (0.3-1.0) mg/dL Direct Bilirubin (0.0-0.2) mg/dL Indirect Bilirubin (0.0-1.2) mg/dL AST (13-39) Units/L ALT (7-52) Units/L Alkaline Phosphatase (34-104) Units/L Troponin I (< 0.04) ng/mL B-Natriuretic Peptide 180 H (Less than 100) pg/mL Serum Total Protein (6.4-8.9) g/dL Albumin (3.5-5.7) g/dL Globulin (2.4-3.5) g/dL Albumin/Globulin Ratio (1.1-2.2) Attestation Statement - Attestation Attestation: I examined this patient and my medical decision-making was reviewed with the Resident Physician. I agree with the documented findings, disposition and treatment plan as described except to the extent set forth below. 63 year old female presents to the ED with complaints of cough and nausea with sore throat. Pnuemonia is likely the source. We will amdit to medicine with ABX.
[2018-11-01] MEDS: Ipratropium/Albuterol Neb 3 ML IH SCH ×2 (20:04→23:17)
[2018-11-01 20:59] LABS: Bilirubin,Urine Negative (Negative); Blood,Urine Negative (Negative); Clarity,Urine Clear (Clear); Color,Urine Yellow (Yellow); Glucose,Urine (UA) Normal (Normal); Ketones,Urine Negative (Negative); Leukocyte Esterase,Urine Negative (Negative); Nitrite,Urine Negative (Negative); PH,Urine 6.5 pH Units (5.0-8.0); Protein,Urine Negative (Neg-Trace); Specific Gravity,Urine 1.013 (1.010-1.025); Urobilinogen,Urine Normal (Normal)
[2018-11-01] MEDS: MethylPREDNISolone 40 MG/ML VIAL IVP SCH (21:37)
[2018-11-01] MEDS: Azithromycin 500 MG in D5% in Water 250 ML IVPB SCH (21:39)
[2018-11-01 21:49] LABS: Adenovirus Not Detected (Not Detect); Coronavirus 229E DETECTED (Not Detect); Coronavirus HKU1 Not Detected (Not Detect); Coronavirus NL63 Not Detected (Not Detect); Coronavirus OC43 Not Detected (Not Detect)
[2018-11-01 21:50] LABS: Bordetella Pertussis Not Detected (Not Detect); Chlamydophila pneumoniae Not Detected (Not Detect); Human Metapneumovirus Not Detected (Not Detect); Human Rhinovirus/Enterovirus Not Detected (Not Detect); Influenza A Subtype 2009 H1 Not Detected (Not Detect); Influenza A Untypeable Not Detected (Not Detect); Influenza B Not Detected (Not Detect); Mycoplasma pneumoniae DETECTED (Not Detect); Parainfluenza Virus 1 Not Detected (Not Detect); Parainfluenza Virus 2 Not Detected (Not Detect); Parainfluenza Virus 3 Not Detected (Not Detect); Parainfluenza Virus 4 Not Detected (Not Detect); Respiratory Syncytial Virus Not Detected (Not Detect)
[2018-11-02] MEDS: Ipratropium/Albuterol Neb 3 ML IH SCH ×6 (04:04→23:56)
[2018-11-02 04:30] LABS: Basophils % 0.1 %; Eosinophils % 0.1 %; Hematocrit 39.5 % (35.3-44.9); Hemoglobin 11.9 g/dL (11.5-15.4); Immature Granulocytes % 0.4 % (0-4); Lymphocytes # 0.4 K/mcL (0.6-4.6); Lymphocytes % 6.2 %; Mean Corpuscular HGB Conc 30.1 g/dL (31.6-35.5); Mean Corpuscular Hemoglobin 25.3 pg (28.0-33.3); Mean Corpuscular Volume 83.9 fL (83.0-100.0); Mean Platelet Volume 10.8 fL (9.4-12.4); Monocytes # 0.1 K/mcL (0.0-1.3); Monocytes % 1.9 %; Neutrophils # 6.4 K/mcL (1.6-8.9); Platelet Count 169 K/mcL (140-400); Red Blood Count 4.71 M/mcL (3.82-4.97); Red Cell Distribution Width 15.6 % (11.5-14.5); Segmented Neutrophils % 91.3 %
[2018-11-02 04:47] LABS: BUN/Creatinine Ratio 19 (6-26); Blood Urea Nitrogen 15 mg/dL (8-23); Calcium 8.6 mg/dL (8.6-10.3); Carbon Dioxide 28 mEq/L (23-29); Chloride 103 mEq/L (98-107); Glucose 163 mg/dL (70-105); Magnesium 2.1 mg/dL (1.6-2.6); Osmolality,Calculated 292 (280-300); Potassium 3.6 mEq/L (3.5-5.1); Sodium 139 mEq/L (136-145); eGFR For Non-African Americans > 60 (> 60)
[2018-11-02] MEDS: MethylPREDNISolone 40 MG/ML VIAL IVP SCH ×2 (06:29→17:27)
[2018-11-02] MEDS ORDERED: traZODone 50 MG TABLET PO PRN (09:53)
--- NOTE | 2018-11-02 09:53 | Internal Med Progress Note ---
Hospitalist Progress Note - Encounter Date of Encounter: 11/02/18 Time of Encounter: 07:30 - Subjective Interval History: Dates that her SOB has improved although still coughing intermittently. Less sputum production. Afebrile since the presentation - Exam Vitals: Temp Pulse Resp BP Pulse Ox 98.3 F 65 18 125/74 98 11/02/18 07:44 11/02/18 07:44 11/02/18 08:07 11/02/18 07:44 11/02/18 08:07 Exam: General: Alert and oriented, not in acute distress. Cardiovascular:Normal S1 & S2, No JVD. Pulse regular. No LE edema Lungs: minimal scattered wheezes bilaterally, no rales Abdomen:Soft, non-tender, no rigidity. Extremities:No deformity or swelling Neurological: grossly non-focal - Assessment and Plan (1) Asthmatic bronchitis Current Visit: Yes Status: Acute Assessment and Plan: presented with fever, cough, sputum production in the absence of leukocytosis or obvious infiltrate on CXR wheezing on exam, compatible with asthmatic bronchitis clinically improved with IV solumedrol and scheduled bronchodilators, continue coronovirus +ve, M. pneumoniae PCR +ve strep/legionella ag -ve continue azithromycin for a total of 7 days for atypical PNA sputum culture if able to expectorate Wean down O2 likely d/c tomorrow if remains afebrile (2) CAD (coronary artery disease) Current Visit: No Status: Chronic Assessment and Plan: recent C in 10/2018, noncritical stenosis resume home meds (3) HTN (hypertension) Current Visit: No Status: Chronic Assessment and Plan: Resume home meds (4) Obesity (BMI 30-39.9) Current Visit: No Status: Chronic Assessment and Plan: lifestyle modifications emphasized (5) DVT prophylaxis Current Visit: No Status: Acute Assessment and Plan: SQ heparin - Time Spent with Patient Total time spent is greater than 50% in coordination of care (as documented) at patient's floor/unit and/or counseling patient: Plan of Care Discussed with: nurse Internal Medicine: Result - Labs CBC & Chem 7: 11/02/18 03:23 11/02/18 03:23 Labs: Short CBC 11/01/18 11/02/18 Range/Units 16:30 03:23 WBC 8.1 7.0 (4.3-11.1) K/mcL Hgb 12.1 11.9 (11.5-15.4) g/dL Hct 39.3 39.5 (35.3-44.9) % Plt Count 185 169 (140-400) K/mcL Neutrophils # 5.9 6.4 (1.6-8.9) K/mcL BMP 11/01/18 11/02/18 16:30 03:23 Sodium 137 139 Potassium 3.1 L 3.6 Chloride 97 L 103 Carbon Dioxide 31 H 28 BUN 16 15 Creatinine 0.81 0.77 Glucose 113 H 163 H Calcium 8.7 8.6 Cardiac Enzymes 11/01/18 Range/Units 16:30 Troponin I < 0.03 (< 0.04) ng/mL Liver Function 11/01/18 Range/Units 16:30 Total Bilirubin 0.6 (0.3-1.0) mg/dL Direct Bilirubin 0.2 (0.0-0.2) mg/dL AST 21 (13-39) Units/L ALT 15 (7-52) Units/L Alkaline Phosphatase 105 H (34-104) Units/L Albumin 3.9 (3.5-5.7) g/dL Urine 11/01/18 Range/Units 20:40 Urine Color Yellow (Yellow) Urine Clarity Clear (Clear) Urine pH 6.5 (5.0-8.0) pH Units Ur Specific [place] 1.013 (1.010-1.025) Urine Protein Negative (Neg-Trace) mg/dL Urine Glucose (UA) Normal (Normal) mg/dL - ABG Interpretation ABG results: PT/INR, D-dimer PT 13.4 Seconds (9.4-12.1) H 11/01/18 16:30 - Impressions Impressions Chest X-Ray 11/01/18 16:33 IMPRESSION: Stable cardiomegaly with pulmonary vascular congestion. D/ / Isabell Prado MD / Isabell Prado MD Interpreting Provider: Isabell Prado MD Consult Discharge Plan - Plan Referrals: Nicki Loco [Primary Care Provider] - (1) Asthmatic bronchitis Qualifiers: Asthma severity: unspecified severity Asthma persistence: unspecified Asthma complication type: with acute exacerbation Qualified Code(s): J45.901 - Unspecified asthma with (acute) exacerbation (2) CAD (coronary artery disease) Qualifiers: Coronary Disease-Associated Artery/Lesion type: [place] artery [place] vs. transplanted heart: [place] heart Associated angina: with stable angina Qualified Code(s): I25.118 - Atherosclerotic heart disease of [place] coronary artery with other forms of angina pectoris (3) HTN (hypertension) Qualifiers: Hypertension type: essential hypertension Qualified Code(s): I10 - Essential (primary) hypertension
[2018-11-02] MEDS: Aspirin Enteric Coated 81 MG Tablet PO SCH (12:06)
[2018-11-02] MEDS: *HR* Heparin 5,000 UNIT/ML VIAL SQ SCH ×2 (15:05→21:27)
[2018-11-02] MEDS: Azithromycin 500 MG in D5% in Water 250 ML IVPB SCH (17:27)
[2018-11-03] MEDS: Ipratropium/Albuterol Neb 3 ML IH SCH ×5 (03:59→20:58)
[2018-11-03] MEDS: MethylPREDNISolone 40 MG/ML VIAL IVP SCH ×3 (06:40→20:57)
[2018-11-03] MEDS: *HR* Heparin 5,000 UNIT/ML VIAL SQ SCH ×3 (06:40→20:56)
[2018-11-03 08:01] LABS: BUN/Creatinine Ratio 25 (6-26); Blood Urea Nitrogen 15 mg/dL (8-23); Calcium 8.7 mg/dL (8.6-10.3); Carbon Dioxide 26 mEq/L (23-29); Chloride 107 mEq/L (98-107); Glucose 194 mg/dL (70-105); Magnesium 2.2 mg/dL (1.6-2.6); Osmolality,Calculated 298 (280-300); Potassium 4.5 mEq/L (3.5-5.1); Sodium 141 mEq/L (136-145); eGFR For Non-African Americans > 60 (> 60)
[2018-11-03] MEDS: Isosorbide MONOnitrate (24 HR) 30 MG TAB.ER.24H PO SCH (09:53)
[2018-11-03] MEDS: Aspirin Enteric Coated 81 MG Tablet PO SCH (09:53)
[2018-11-03] MEDS: Furosemide 40 MG TABLET PO SCH (09:53)
[2018-11-03] MEDS ORDERED: Patient Taking Own Medication 1 EACH PO SCH (09:53)
[2018-11-03] MEDS: Lisinopril 20 MG TABLET PO SCH (09:53)
--- NOTE | 2018-11-03 10:51 | Internal Med Progress Note ---
Hospitalist Progress Note - Encounter Date of Encounter: 11/03/18 Time of Encounter: 09:45 - Subjective Interval History: States that her conditions are about the same with improving cough but has more prominent wheezes. Continues to be afebrile since the presentation - Exam Vitals: Temp Pulse Resp BP Pulse Ox 98.8 F 81 16 129/66 97 11/03/18 09:27 11/03/18 09:27 11/03/18 09:27 11/03/18 09:27 11/03/18 07:53 Exam: General: Alert and oriented, not in acute distress. Cardiovascular:Normal S1 & S2, No JVD. Pulse regular. No LE edema Lungs: wheezing bilaterally, no rales Abdomen:Soft, non-tender, no rigidity. Extremities:No deformity or swelling Neurological: grossly non-focal - Assessment and Plan (1) Asthmatic bronchitis Current Visit: Yes Status: Acute Assessment and Plan: presented with fever, cough, sputum production in the absence of leukocytosis or obvious infiltrate on CXR wheezing on exam, compatible with asthmatic bronchitis coronovirus +ve, M. pneumoniae PCR +ve strep/legionella ag -ve was improving on IV solumedrol 40mg BID and scheduled bronchodilators, slightly more wheezy today increase steroid dosing to Q8 continue azithromycin for a total of 7 days for atypical PNA sputum culture if able to expectorate Wean down O2 (2) CAD (coronary artery disease) Current Visit: No Status: Chronic Assessment and Plan: recent C in 10/2018, noncritical stenosis resume home meds (3) HTN (hypertension) Current Visit: No Status: Chronic Assessment and Plan: Resume home meds (4) Obesity (BMI 30-39.9) Current Visit: No Status: Chronic Assessment and Plan: lifestyle modifications emphasized (5) DVT prophylaxis Current Visit: No Status: Acute Assessment and Plan: SQ heparin - Time Spent with Patient Total time spent is greater than 50% in coordination of care (as documented) at patient's floor/unit and/or counseling patient: Plan of Care Discussed with: patient Internal Medicine: Result - Labs CBC & Chem 7: 11/02/18 03:23 11/03/18 07:32 Labs: BMP 11/03/18 07:32 Sodium 141 Potassium 4.5 Chloride 107 Carbon Dioxide 26 BUN 15 Creatinine 0.61 Glucose 194 H Calcium 8.7 - ABG Interpretation ABG results: PT/INR, D-dimer PT 13.4 Seconds (9.4-12.1) H 11/01/18 16:30 Consult Discharge Plan - Plan Referrals: Nicki Loco [Primary Care Provider] - (1) Asthmatic bronchitis Qualifiers: Asthma severity: unspecified severity Asthma persistence: unspecified Asthma complication type: with acute exacerbation Qualified Code(s): J45.901 - Unspecified asthma with (acute) exacerbation (2) CAD (coronary artery disease) Qualifiers: Coronary Disease-Associated Artery/Lesion type: [place] artery [place] vs. transplanted heart: [place] heart Associated angina: with stable angina Qualified Code(s): I25.118 - Atherosclerotic heart disease of [place] coronary artery with other forms of angina pectoris (3) HTN (hypertension) Qualifiers: Hypertension type: essential hypertension Qualified Code(s): I10 - Essential (primary) hypertension
[2018-11-03] MEDS ORDERED: MOM Conc 10 ML UD.LIQ PO PRN (15:23)
[2018-11-03] MEDS: Azithromycin 500 MG in D5% in Water 250 ML IVPB SCH (17:15)
[2018-11-03] MEDS ORDERED: traZODone 50 MG TABLET PO SCH (21:00)
[2018-11-04] MEDS: Ipratropium/Albuterol Neb 3 ML IH SCH ×4 (00:21→11:33)
[2018-11-04 05:37] LABS: Basophils % 0.1 %; Hematocrit 41.8 % (35.3-44.9); Hemoglobin 12.7 g/dL (11.5-15.4); Immature Granulocytes % 0.8 % (0-4); Lymphocytes # 0.7 K/mcL (0.6-4.6); Lymphocytes % 5.1 %; Mean Corpuscular HGB Conc 30.4 g/dL (31.6-35.5); Mean Corpuscular Hemoglobin 25.5 pg (28.0-33.3); Mean Corpuscular Volume 83.8 fL (83.0-100.0); Mean Platelet Volume 11.3 fL (9.4-12.4); Monocytes # 0.5 K/mcL (0.0-1.3); Monocytes % 3.1 %; Platelet Count 189 K/mcL (140-400); Red Blood Count 4.99 M/mcL (3.82-4.97); Red Cell Distribution Width 16.1 % (11.5-14.5); Segmented Neutrophils % 90.9 %
[2018-11-04 05:39] LABS: Neutrophils # 13.3 K/mcL (1.6-8.9)
[2018-11-04 05:55] LABS: BUN/Creatinine Ratio 28 (6-26); Blood Urea Nitrogen 22 mg/dL (8-23); Calcium 9.2 mg/dL (8.6-10.3); Carbon Dioxide 24 mEq/L (23-29); Chloride 98 mEq/L (98-107); Glucose 361 mg/dL (70-105); Osmolality,Calculated 298 (280-300); Potassium 3.7 mEq/L (3.5-5.1); Sodium 135 mEq/L (136-145); eGFR For Non-African Americans > 60 (> 60)
[2018-11-04] MEDS: *HR* Heparin 5,000 UNIT/ML VIAL SQ SCH (05:58)
[2018-11-04] MEDS: MethylPREDNISolone 40 MG/ML VIAL IVP SCH (05:59)
[2018-11-04 06:42] VITALS: BP 149/66
[2018-11-04] MEDS: Lisinopril 20 MG TABLET PO SCH (08:19)
[2018-11-04] MEDS: Isosorbide MONOnitrate (24 HR) 30 MG TAB.ER.24H PO SCH (08:19)
[2018-11-04] MEDS: Furosemide 40 MG TABLET PO SCH (08:20)
[2018-11-04] MEDS ORDERED: Aspirin 81 MG TAB.CHEW PO SCH (09:00)
[2018-11-04] MEDS ORDERED: Metoprolol XL (24 HR) Succ 50 MG TAB.ER.24H PO SCH (09:00)
[2018-11-04] MEDS ORDERED: ACITRETIN 25 MG PO SCH (09:00)
[2018-11-04] MEDS ORDERED: Azithromycin 500 MG in D5% in Water 250 ML IVPB SCH (09:00)
--- NOTE | 2018-11-04 09:51 | Discharge Summary ---
- NOTES TO OUTPATIENT PROVIDER Notes to Outpatient Provider: Patient was admitted for asthmatic bronchitis, coronavirus and Mycoplasma pneumonia positive. Responded well to steroid, azithromycin, bronchodilators, and will be discharged back to [facility] on the same. Orders not resulted at time of discharge: Pending orders 11/01/18 16:33 ECG 12 lead ECG [ECG] Stat 11/01/18 16:37 Culture,Blood [BC] Stat 11/01/18 18:04 Culture,Sputum with Gram Stain [RM] Stat Date of Encounter: 11/04/18 Time of Encounter: 07:30 - Discharge Diagnosis (1) Asthmatic bronchitis Priority: Primary Status: Acute Qualifiers: Asthma severity: unspecified severity Asthma persistence: unspecified Asthma complication type: with acute exacerbation Qualified Code(s): J45.901 - Unspecified asthma with (acute) exacerbation (2) CAD (coronary artery disease) Priority: Secondary Status: Chronic Qualifiers: Coronary Disease-Associated Artery/Lesion type: [place] artery [place] vs. transplanted heart: [place] heart Associated angina: with stable angina Qualified Code(s): I25.118 - Atherosclerotic heart disease of [place] coronary artery with other forms of angina pectoris (3) HTN (hypertension) Priority: Secondary Status: Chronic Qualifiers: Hypertension type: essential hypertension Qualified Code(s): I10 - Essential (primary) hypertension (4) Obesity (BMI 30-39.9) Priority: Secondary Status: Chronic (5) DVT prophylaxis Priority: Secondary Status: Acute (6) Diastolic CHF, chronic Priority: Secondary Status: Chronic Hospital course: is a 63 year old female was admitted for asthmatic bronchitis, coronavirus and Mycoplasma pneumonia positive. Responded well to steroid, azithromycin, bronchodilators, and will be discharged back [facility] with a total of 7 days of Azithromycin and steroid taper. Discharge discussed with: patient, nurse - Time Spent with Patient Total time spent providing and/or coordinating discharge services: 31 mins - Discharge Medications Prescriptions: Azithromycin 500 mg PO DAILY 3 Days #6 tablet predniSONE [PredniSONE] 60 mg PO DAILY 9 Days #18 tablet Home Medications: Cholecalciferol (D-3) [Vitamin D] 1,000 unit PO HS 03/29/17 [History] Citalopram [CeleXA] 20 mg PO HS 03/29/17 [History] Oxybutynin Chloride [Ditropan Xl] 5 mg PO DAILY 06/29/17 [History] Triamcinolone Acet 0.1% CRM [Kenalog] 1 appl TP 2XW 03/29/17 [History] Lisinopril [Zestril] 20 mg PO DAILY #30 tablet 03/31/17 [Rx] amLODIPine [Norvasc] 10 mg PO DAILY #60 tablet 03/31/17 [Rx] Acetaminophen [Tylenol] 1,000 mg PO Q6H PRN 10/08/18 [History] Acitretin [Soriatane] 25 mg PO SUWESA 10/08/18 [History] Acitretin [Soriatane] 50 mg PO MOTUTHFR 10/08/18 [History] Furosemide [Lasix] 40 mg PO DAILY 10/08/18 [History] Aspirin 81 mg PO DAILY #30 tab.chew 10/11/18 [Rx] Atorvastatin [Lipitor] 40 mg PO HS #30 tablet 10/11/18 [Rx] Isosorbide MONOnitrate (24 HR) [Imdur] 30 mg PO DAILY #30 tab.er.24h 10/11/18 [Rx] Albuterol Sulfate [Proair Hfa] 2 puff PO Q4H PRN 11/03/18 [History] Bismuth Subsalicylate [PEPTO-BISMOL (262mg/15mL) Susp] 30 ml PO Q4H PRN MDD 120ML/24 HOURS 11/03/18 [History] Calcium Carbonate [Tums] 1,000 mg PO DAILY PRN 11/03/18 [History] Chloraseptic [place] [Chloraseptic] 2 spray PO Q2H PRN MDD 8 DOSES/DAY 11/03/18 [History] GuaiFENesin/Dextromethorphan [Robitussin Cough-Chest Dm Liq] 10 ml PO Q4H PRN MDD 6 DOSES/24 HOURS 11/03/18 [History] Loperamide HCl [Imodium A-D] 2 mg PO Q6H PRN MDD 16MG/DAY 11/03/18 [History] Magnesium Hydroxide [Milk of Magnesia] 30 ml PO DAILY PRN 11/03/18 [History] Metoprolol Succinate 50 mg PO DAILY 11/03/18 [History] Pseudoephedrine HCl [Sudafed] 30 mg PO Q12H PRN 11/03/18 [History] Trazodone HCl 100 mg PO HS 11/03/18 [History] Azithromycin 500 mg PO DAILY 3 Days #6 tablet 11/04/18 [Rx] predniSONE [PredniSONE] 60 mg PO DAILY 9 Days #18 tablet 11/04/18 [Rx] Allergies/Adverse Reactions: Allergy/AdvReac Type Severity Reaction Status Date / Time Sulfa (Sulfonamide Allergy Caregiver Verified 11/03/18 12:57 Antibiotics) uncertain of reaction, states "she is allergic" codeine AdvReac See Verified 11/03/18 12:57 [From Tylenol-Codeine #3] Comments Date of admission: 11/01/18 18:44 Primary care physician: Nicki Loco - Constitutional Vitals: Temp Pulse Resp BP Pulse Ox 97.9 F 75 18 149/66 97 11/04/18 06:37 11/04/18 06:37 11/04/18 07:21 11/04/18 06:37 11/04/18 07:21 Exam: General: Alert and oriented, not in acute distress. Cardiovascular:Normal S1 & S2, No JVD. Pulse regular. No LE edema Lungs: minimal end-expiratory wheezes, no rales Abdomen:Soft, non-tender, no rigidity. Extremities:No deformity or swelling Neurological: grossly non-focal - Patient Status Disposition: Home, Self-Care Condition: Fair Functional capacity at discharge: independent ambulation Overall status at discharge: patient is progressing back to baseline - Discharge Instructions Instructions: Asthma (DC), Chronic Hypertension (DC) Follow Up With: Nicki Loco [Primary Care Provider] - Additional Instructions: COmplete a course of PO Azithromycin and Prednisone as prescribed - Diet and Activity Activity: resume usual activities as tolerated Diet: low salt diet
[2018-11-06] MEDS ORDERED: ACITRETIN 25 MG PO SCH (09:00)
--- NOTE | 2018-11-08 08:45 | Electrocardiograph Report ---
[facility] Test Date: 2018-11-01 Pat Name: Lilibeth Little Department: [id number] Room: 2A16 Gender: F Pulverizer: : 1955 Requested By: London Dickson Order Number: [id number] Reading MD: Claudio Hall Measurements Intervals [place] Rate: 71 P: 66 CA: 130 QRS: 81 QRSD: 101 T: 98 QT: 428 QTc: 466 Interpretive Statements Sinus rhythm Borderline right axis deviation Nonspecific T abnormalities, lateral leads Electronically Signed On 11-08-2018 8:44:16 EST by Claudio Hall
== END 2018-11-04 13:29 | disposition home or self-care (01) ==
LOC: EMEROOARM 16:12 → 2ANU 16:12 → SUATTDRO 18:44 → 2ANU 20:00
PROVIDERS: ADMIT Student in an Organized Health Care Education/Training Program; ATTEND Internal Medicine